=== PATIENT | female | born 1975 | race Caucasian/White ===

== ENCOUNTER → 2020-03-14 15:17 | Outpatient (CLI) | payer OTHER, SELFPAY ==
--- NOTE | ~2020-03-14 | US_ITS ---
EXAMINATION: US transvaginal DATE: 03/14/2020 15:48 INDICATION: Abnormal uterine bleeding TECHNIQUE: Multiple endovaginal sonographic images of the pelvis were obtained. COMPARISON: None. FINDINGS: The uterus measures 9.1 x 4.5 x 4.7 cm. A 1.8 cm hypoechoic area in the anterior aspect of the uterine fundus has the appearance of an intramural fibroid. A 1.8 cm similar appearing area in th e posterior uterine fundus also has the appearance of an intramural fibroid. The endometrial complex measures 13 mm. The ovaries are not visualized however no adnexal abnormality is seen. There is no fr ee fluid in the pelvis. IMPRESSION: 1. No sonographic correlate for the patient's symptoms. Reviewed, dictated and finalized at location A. WASHER OPERATOR
== END ==
PROVIDERS: Visit Provider Nurse Practitioner
DX: N93.8 Other specified abnormal uterine and vaginal bleeding (principal)
CPT/HCPCS: 76830

== ENCOUNTER 2020-03-27 09:09 | Outpatient (CLI) | payer OTHER, SELFPAY ==
--- NOTE | 2020-03-27 09:12 | ECG_ITS ---
Measurements Intervals [place] Rate: 65 P: 36 [place]: 166 QRS: 38 QRSD: 91 T: 24 QT: 374 QTc: 392 Interpretive Statements SINUS RHYTHM MINIMAL Q WAVES- INFERIOR LEADS BASELINE WANDER- II, III BORDERLINE ECG Electronically Signed On 03-27-2020 9:34:07 AGRONOMY SUPERVISOR by Wily Cevallos D.O.
[2020-03-27 10:06] LABS: Anion Gap 7 mmol/L (8-16); Blood Urea Nitrogen 14 mg/dL (7-17); Calcium 9.2 mg/dL (8.4-10.2); Carbon Dioxide 29 mmol/L (22-30); Chloride 105 mmol/L (98-107); Estimated Glomerular Filt Rate > 60; Glucose 138 mg/dL (65-105); Potassium 3.7 mmol/L (3.4-5.0); Sodium 141 mmol/L (137-145)
== END 2020-03-27 09:10 | disposition home or self-care (01) ==
LOC: ANHSURGERY 09:12
PROVIDERS: Anesthesiology; PCP Nurse Practitioner Family; Visit Provider Obstetrics & Gynecology Gynecology
DX: Z01.818 Encounter for other preprocedural examination (principal); I10 Essential (primary) hypertension
CPT/HCPCS: 36415; 80048; 93005

== ENCOUNTER → 2020-03-30 03:12 | Outpatient (CLI) | payer OTHER, SELFPAY ==
[2020-03-30 18:10] LABS: SARS-CoV-2 RNA PCR Negative
== END ==
PROVIDERS: PCP Nurse Practitioner Family; Visit Provider Obstetrics & Gynecology Gynecology
DX: Z01.812 Encounter for preprocedural laboratory examination (principal); Z20.822 Contact with and (suspected) exposure to COVID-19
CPT/HCPCS: C9803; U0003; U0005

== ENCOUNTER 2020-04-02 01:31 | Day surgery (SDC) | payer OTHER, SELFPAY ==
[2020-03-26 10:54] VITALS: BMI 46.0
[2020-04-02 06:13] VITALS: BP 144/92; PULSE 87; RESP 16; TEMP 36.9; O2SAT 100
--- NOTE | 2020-04-02 06:30 | WPDANESEPPF ---
Anes - Initial Pre Proc Eval Procedure: Operation Date: 04/02/20 07:30 Proposed Procedures p Hysteroscopy, Dilation and Curettage - Karen Mazariegos MD Date/Time: 04/02/20 06:30 Surgeon: Karen Mazariegos MD Pre Op Diagnosis: abn uterine bleeding Patient Data Age: 44 Gender: F Height: 5 ft 3 in Weight: 117.95 kg Allergies Allergy/AdvReac Type Severity Reaction Status Date / Time No Known Allergies Allergy Verified 03/27/20 08:00 Home Medications Medication Instructions Recorded Confirmed Type cetirizine 10 mg capsule 10 mg PO DAILY PRN 03/26/20 03/27/20 History cholecalciferol (vitamin D3) 10 10 mcg PO DAILY 03/26/20 03/27/20 History mcg (400 unit) capsule hydrochlorothiazide 12.5 mg PO HS 03/26/20 03/27/20 History losartan 50 mg PO HS 03/26/20 03/27/20 History metformin 500 mg tablet 500 mg PO BID 03/26/20 03/27/20 History omega-3 fatty acids 1,000 mg 1,000 mg PO DAILY 03/26/20 03/27/20 History capsule Patient hx anesthesia problems: none Family hx anesthesia problems: none [facility] Past Medical History Medical History Diabetes Hypertension Surgical History Surgical History History of D&C History of ear surgery Family History Family History Father Diabetes mellitus Heart disease Hypertension Grandparent Diabetes mellitus Heart disease Social History Social History Smoking status: Never smoker Alcohol intake: current Alcohol use details: 2 DRINKS PER MONTH Living arrangements: with family 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 Questions were solicited and answers provided to the satisfaction of the patient/family/POA.
[2020-04-02] MEDS: ACETAMINOPHEN 500 MG TABLET 1000 MG PO (06:52)
[2020-04-02] MEDS: LACTATED RINGERS 1,000 ML 30 ML IV CONT (07:00)
--- NOTE | 2020-04-02 07:19 | WPDHPUPDATE1 ---
History and Physical Update Update Date/Time: 04/02/20 07:19 History and Physical has been reviewed, including an updated exam of the patient. There are NO changes in the patient's condition. Risks, benefits, and alternatives have been discussed and questions answered. Patient agrees to proceed with procedure.
--- NOTE | 2020-04-02 07:20 | P.HP_ITS ---
History of Present Illness History of Present Illness Consent: Risks, benefits, and alternatives have been discussed and questions answered. Patient agrees to proceed with procedure. Chief complaint: abn uterine bleeding Narrative: Beth Krishnan is a 44 year old female with 4 years of amenorrhea secondary to PCOS. Patient was new to us and u/s done showing lining 13mm thickened. Patient labs also diagnosed diabetes. Patient took Provera without cycle induced. Recommend further work up with D&C hysteroscopy. Risks of infection, bleeding, perforation, and possible pathology reviewed. Patient voiced understanding and agrees to proceed. 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 Spiritual care concerns: No Meds Home Medications and Allergies Home Medications Medication Instructions Recorded Confirmed Type cetirizine 10 mg capsule 10 mg PO DAILY PRN 03/26/20 03/27/20 History cholecalciferol (vitamin D3) 10 10 mcg PO DAILY 03/26/20 03/27/20 History mcg (400 unit) capsule hydrochlorothiazide 12.5 mg PO HS 03/26/20 03/27/20 History losartan 50 mg PO HS 03/26/20 03/27/20 History metformin 500 mg tablet 500 mg PO BID 03/26/20 03/27/20 History omega-3 fatty acids 1,000 mg 1,000 mg PO DAILY 03/26/20 03/27/20 History capsule Allergies Allergy/AdvReac Type Severity Reaction Status Date / Time No Known Allergies Allergy Verified 03/27/20 08:00 Exam Const: General: alert and anxious Nutritional Appearance: obese (BMI 45.9) Orientation/consciousness: patient oriented x3 Resp: Effort & Inspection: normal respiratory effort Auscultation: clear to auscultation bilaterally Cardio: Rate: regular rate Rhythm: regular rhythm GI: GI Palp: Yes Soft to palpation, No Tenderness to palpation present (GI) and No Palpable mass present : External Female Exam: normal external appearance Speculum Exam - Vagina: normal appearance of the vagina and normal vaginal discharge Speculum Exam - Cervix: normal appearance of the cervix Bimanual exam- vagina & uterus: uterine size normal and consistency normal Bimanual Exam- Adnexa, other: normal adnexae and No adnexal tenderness Neuro: General: patient oriented x3 Assessment and Plan Assessment and plan (1) Thickened endometrium: Code(s): R93.89 - Abnormal findings on diagnostic imaging of other specified body structures Status: Acute Assessment and Plan: Plan to proceed with hysteroscopy with D&C
[2020-04-02 07:23] LABS: Glucose Point of Care 155 (65-105)
[2020-04-02] MEDS: LIDOCAINE HCL 1% LOCAL INJ 20 ML VIAL 10 ML INFILTRATE (07:46)
[2020-04-02 08:01] VITALS: BP 140/82; PULSE 71; RESP 14; O2SAT 97
--- NOTE | 2020-04-02 08:02 | PM.PROC ---
Procedure Note - Detailed Date of procedure: 04/02/20 Pre-op diagnosis: thickened endometrium amenorrhea with thickened endometrium Post-op diagnosis: same Procedure performed: D&C hysteroscopy Description of procedure: The patient was taken to the operating room and placed under anesthesia in the dorsal lithotomy position. She was prepped and draped in the usual sterile fashion. Rhododendron speculum was placed in the vagina and the cervix was grasped on the anterior lip with a tenaculum. The cervix was injected with 1% lidocaine in each quadrant and the sound was placed and internal os is noted to be stenotic. The small dilators used and the cervix is able to be entered the cervix is serially dilated with Hegar. The diagnostic hysteroscope was placed. A false passage is noted. The true passage is noted to the patient's left of the false passage. The small dilator is used aim for this location and is then serially dilated. The hysteroscope was replaced and the hysteroscope is able to be maneuvered into the true endometrial cavity. The endometrial cavity appears grossly normal. The hysteroscope was removed and the medium sharp curette is used to sharply curette the endometrium. Minimal material is obtained consistent with the thin appearance of the endometrium. All instruments are removed. Sponge, instrument, and needle counts are correct per the OR staff. Anesthesia: MAC and local Surgeon: Karen Mazariegos MD Estimated blood loss (mL): 5 Drains: No Packing: No Pathology: yes (enodmetrial curettings) Complications: No immediate complications Condition: stable Disposition: PACU Findings: cervical os stenotic; false passage created; endometrium normal appearing; uterus sounds to 8 cm
[2020-04-02] MEDS: fentaNYL CITRATE INJ (*CRX) 100 MCG/2 ML VIAL 25 MCG IV PUSH ×2 (08:16→08:44)
[2020-04-02 08:30] VITALS: BP 135/87; PULSE 74; RESP 16
--- NOTE | 2020-04-02 08:53 | SUR.PHASEII ---
0815; PT C/O CRAMPING AT 09/01. FENTANYL GIVEN IV. 0845; PT AWAKE AND ALERT. SITTING IN RECLINER. STATES PAIN IMPROVED AT 07/02. FENTANYL GIVEN IV
[2020-04-02 09:00] VITALS: BP 125/83; PULSE 66; RESP 16
--- NOTE | 2020-04-02 09:43 | SUR.PHASEII ---
0915; PT AWAKE AND ALERT. STATES CRAMPING MUCH BETTER NOW AND TOLERABLE. READY TO GO HOME.
== END 2020-04-02 09:43 | disposition home or self-care (01) ==
PROVIDERS: PCP Nurse Practitioner Family; Visit Provider Obstetrics & Gynecology Gynecology
PROC: 0U5B8ZZ Destruction of Endometrium, Via Natural or Artificial Opening Endoscopic (ICD-10-PCS; CPT 58563; principal; 2020-04-02 07:30)
DX: N85.8 Other specified noninflammatory disorders of uterus (principal); N93.9 Abnormal uterine and vaginal bleeding, unspecified; I10 Essential (primary) hypertension; E11.9 Type 2 diabetes mellitus without complications; Z79.84 Long term (current) use of oral hypoglycemic drugs; E66.01 Morbid (severe) obesity due to excess calories; Z68.42 Body mass index [BMI] 45.0-49.9, adult
CPT/HCPCS: 58558; 36415; 80048; 82948; 88305; 93005; A9270; C9803; J2250; J2704; J3010; J7030; J7120; U0003; U0005

== ENCOUNTER 2020-04-10 12:14 | Outpatient (CLI) | payer OTHER, SELFPAY ==
[2020-04-12 05:19] LABS: FSH 10.9 mIU/mL (***); LH 5.3 mIU/mL (***)
== END 2020-04-10 12:15 | disposition home or self-care (01) ==
PROVIDERS: PCP Nurse Practitioner Family; Visit Provider Nurse Practitioner
DX: N91.2 Amenorrhea, unspecified (principal)
CPT/HCPCS: 36415; 83001; 83002

== ENCOUNTER 2023-06-19 13:37 | Outpatient (CLI) | payer OTHER, MEDICAID, SELFPAY ==
[2023-06-19 15:00] LABS: Alanine Aminotransferase 17 U/L (6-35); Albumin Level 4.6 g/dL (3.5-5.1); Alkaline Phosphatase 65 U/L (38-126); Anion Gap 7 mmol/L (4-12); Aspartate Amino Transferase 20 U/L (14-36); Bilirubin,Total 0.6 mg/dL (0.2-1.3); Blood Urea Nitrogen 15 mg/dL (7-17); Calcium 9.6 mg/dL (8.4-10.2); Carbon Dioxide 28 mmol/L (22-30); Chloride 106 mmol/L (98-107); Estimated Glomerular Filt Rate > 60; Glucose 110 mg/dL (65-110); Potassium 3.7 mmol/L (3.4-5.0); Sodium 141 mmol/L (137-145)
[2023-06-19 15:57] LABS: Free T4 Free Thyroxine 1.31 ng/mL (0.78-2.19); Vitamin D 25 Hydroxy 55.1 ng/mL
[2023-06-21 06:43] LABS: DHEA-Sulfate 47 mcg/dL (15-205)
[2023-06-22 13:12] LABS: Thyroid Peroxidase Antibodies <1 IU/mL (<9)
[2023-06-23 09:48] LABS: Testosterone Free 0.9 pg/mL (0.2-5.0); Testosterone Total 5 ng/dL (2-45)
== END 2023-06-19 13:38 | disposition home or self-care (01) ==
LOC: ANHLAB 13:39
PROVIDERS: PCP Nurse Practitioner Family; Visit Provider Internal Medicine
DX: E28.2 Polycystic ovarian syndrome (principal); E11.9 Type 2 diabetes mellitus without complications; Z68.42 Body mass index [BMI] 45.0-49.9, adult
CPT/HCPCS: 36415; 80053; 82306; 82627; 83498; 84402; 84403; 84439; 84443; 86376

== ENCOUNTER 2023-06-22 16:24 | Outpatient (CLI) | payer OTHER, MEDICAID, SELFPAY ==
--- NOTE | ~2023-06-22 | US_ITS ---
EXAMINATION: US thyroid DATE: 06/22/2023 17:26 INDICATION: Goiter. TECHNIQUE: Multiple ultrasound images of the thyroid were obtained. COMPARISON: None. FINDINGS: The right thyroid lobe measures 4.1 x 1.8 x 1.7 cm. The left thyroid lobe measures 4.5 x 1.4 x 1.7 c m. The thyroid demonstrates heterogeneous echogenicity. Vascularity is normal. In the thyroid isthmu s, there is a 3.4 cm solid, isoechoic, wider than tall nodule with ill-defined margin without echogen ic foci (TI-RADS TR3). In the left thyroid lobe, there is an 11 mm solid, hypoechoic, wider than tall nodule with ill-defined margin without echogenic foci (TR4). In the right thyroid lobe, there is a 9 mm solid, hypoechoic, wider than tall nodule with irregular margin without echogenic foci (TR4). IMPRESSION: 1. Multinodular goiter. Ultrasound-guided fine-needle aspiration of the 3.4 cm nodule in thyroid isth mus is recommended. Reviewed, dictated and finalized at location A. IMPRESSION: 1. Multinodular goiter. Ultrasound-guided fine-needle aspiration of the 3.4 cm nodule in thyroid isthmus is recommended.
== END 2023-06-22 16:25 | disposition home or self-care (01) ==
LOC: ANHIMG 16:28
PROVIDERS: PCP Nurse Practitioner Family; Visit Provider Internal Medicine
DX: E11.9 Type 2 diabetes mellitus without complications (principal); E04.2 Nontoxic multinodular goiter
CPT/HCPCS: 76536

== ENCOUNTER 2023-07-06 08:02 | Outpatient (CLI) | payer OTHER, MEDICAID, SELFPAY ==
[2023-07-06 09:04] LABS: Cholesterol 150 mg/dL (0-200); HDL Direct 42 mg/dL; Triglycerides 163 mg/dL (<150)
[2023-07-06 09:17] LABS: LDL Cholesterol Direct 98 mg/dL
[2023-07-06 09:49] LABS: Vitamin D 25 Hydroxy 57.8 ng/mL
== END 2023-07-06 08:03 | disposition home or self-care (01) ==
PROVIDERS: PCP Nurse Practitioner Family; Visit Provider Internal Medicine
DX: E11.9 Type 2 diabetes mellitus without complications (principal); E28.2 Polycystic ovarian syndrome; E28.39 Other primary ovarian failure; R93.89 Abnormal findings on diagnostic imaging of other specified body structures; E78.2 Mixed hyperlipidemia; E55.9 Vitamin D deficiency, unspecified
CPT/HCPCS: 36415; 80061; 82306; 82530

== ENCOUNTER 2023-07-06 08:46 | Outpatient (CLI) | payer OTHER, MEDICAID, SELFPAY ==
[2023-07-13 14:12] VITALS: BMI 42.7
--- NOTE | 2023-07-13 14:12 | WPDHOMESLEEP ---
Sleep Study - Home Unattended Date of Study: 07/06/23 Ordering Provider: JORGE LUIS Forbes Interpreting Provider: Katlyn Carty, DO Home Sleep Study Type: Watch PAT Height: 1.63 m Weight: 112.945 kg Body Mass Index: 42.7 Neck Circumference (inches): 16 [place]: 2 Reason for Sleep Study Snoring Sleep History The patient is a 47-year-old female with hypertension, type 2 diabetes, PCOS and morbid obesity that had a sleep study ordered by the pulmonary group for evaluation of sleep apnea. The patient denies awakening from sleep short of breath. She denies awakening at night with heartburn, belching or cough. She frequently snores and is frequently loud enough that others complain. She rarely has trouble sleeping when she has a cold. She denies waking up gasping for air throughout the night. She denies having breathing problems at night observed by herself or others. She occasionally sweats excessively at night. She denies having heart palpitations or irregular heartbeats during the night. She denies falling asleep during the day and while driving. She denies sleep paralysis and cataplexy. She rarely has trouble at school or work due to sleepiness. She rarely experiences vivid dreamlike scenes upon awakening or falling asleep. She denies feeling afraid of going to sleep. She rarely has nightmares. She rarely remembers her dreams. She denies having thoughts racing through her mind. She rarely feels sad or depressed. She rarely has anxiety. She denies having muscular tension. She denies noticing parts of her body jerk. She denies kicking during the night. She denies having crawling and aching feelings in her legs and denies having leg pain during the night. She denies grinding her teeth during sleep and denies awakening with morning jaw pain. She denies being bothered by pain during the day and denies being awakened by pain during the night. She denies waking up feeling stiff in the morning. She denies waking up with sore or achy muscles. She denies waking up with pain in the neck, spine and other joints. She goes to bed at 9:00 p.m. on weekdays and between 10-11 p.m. on the weekends. It takes her 5-15 minutes to fall asleep. She wakes up 1-2 times throughout the night to urinate and is able to fall back asleep within 15-30 minutes. She wakes up at 5:15 a.m. on weekdays and between 5-9 a.m. on the weekends. She typically gets 7 hours of sleep per night. She will stay in bed for 5 minutes after waking up in the morning. She currently lives with her spouse and 2 children. She denies consuming any caffeinated beverages within 2 hours of bedtime. She denies engaging in physical exercise before bedtime. She will watch television before falling asleep. She denies taking naps in afternoon or the evening. She consumes 1 caffeinated beverage per week. She denies tobacco, alcohol and recreational drug use. [facility] Past Medical History Medical History Diabetes Hypertension PCOS (polycystic ovarian syndrome) Surgical History Surgical History History of D&C History of ear surgery Family History Family History Father Diabetes mellitus Heart disease Hypertension Grandparent Diabetes mellitus Heart disease Social History Social History Smoking status: Never smoker Alcohol intake: current Alcohol use details: 2 DRINKS PER MONTH Substance use: never Do You Feel Safe in your Home?: Yes Lack of Transportation: No Lack of Food: Never True Current Housing: I Have Housing Concerned About Future Housing: No Difficulty Paying Gas/Electric Bills: No Difficulty Paying for Meds: No Currently Unemployed: No Education: Associate Degree Difficulty w/ Childcare or Fami
== END 2023-07-07 09:43 | disposition home or self-care (01) ==
LOC: ANHCSM 08:46
PROVIDERS: PCP Nurse Practitioner Family; Visit Provider Physician Assistant
DX: G47.33 Obstructive sleep apnea (adult) (pediatric) (principal); G47.10 Hypersomnia, unspecified
CPT/HCPCS: 36415; 80061; 82306; 82530; 95800

== ENCOUNTER 2023-09-01 12:25 | Outpatient (CLI) | payer OTHER, MEDICAID, SELFPAY ==
--- NOTE | ~2023-09-01 | US_ITS ---
EXAMINATION: US FNA w image guidance, US FNA additional DATE: 09/01/2023 13:52 (accession [id number]), 09/01/2023 16:08 (accession [id number]) INDICATION: Thyroid nodules TECHNIQUE: A time-out was performed to verify the patient's name, date of , and procedure to be performed . The procedure and its benefits and risks were discussed with the patient. Risks specifically discus sed included bleeding and infection. The patient understood the risks and agreed to proceed. The neck was prepped and draped in the usual sterile manner. Attention was first turned to the larger nodule at the isthmus. 4 mL 1% lidocaine was used for local anesthesia. 6 passes were made with a 25G needl e into the lesion. Appropriate needle location was documented with continuous sonographic guidance. Attention was then turned to the smaller left thyroid nodule. An additional 4 mm 1% lidocaine was use d for local anesthesia. 6 additional passes were made with a 20 5G needle into the lesion. Appropriat e needle location was documented with continuous sonographic guidance. Sterile bandages were applied to both biopsy sites. There were no immediate complications. FINDINGS: Grayscale ultrasound images demonstrate biopsy needles advanced into a 3.4 cm TI RADS 3 nodule at the thyroid isthmus. Subsequent images demonstrate biopsy needles advanced into a 1.2 cm TI RADS 4 nodul e at the mid to inferior left thyroid. IMPRESSION: 1. Successful ultrasound-guided fine needle aspiration of a 3.4 cm TI RADS 3 nodule at the thyroid i sthmus. 2. Successful fine-needle aspiration of a 1.2 cm TI RADS 4 nodule at the left thyroid lobe. Reviewed, dictated and finalized at location A. IMPRESSION: 1. Successful ultrasound-guided fine needle aspiration of a 3.4 cm TI RADS 3 n odule at the thyroid isthmus. 2. Successful fine-needle aspiration of a 1.2 cm TI RADS 4 nodule at the left t hyroid lobe.
== END 2023-09-01 12:26 | disposition home or self-care (01) ==
LOC: ANHIMG 12:28
PROVIDERS: PCP Nurse Practitioner Family; Visit Provider Internal Medicine
DX: E04.2 Nontoxic multinodular goiter (principal); E28.2 Polycystic ovarian syndrome; E11.9 Type 2 diabetes mellitus without complications; E28.39 Other primary ovarian failure; G47.10 Hypersomnia, unspecified
CPT/HCPCS: 10005; 10006; 88172; 88173; 88305

== ENCOUNTER 2024-08-30 08:30 | Outpatient (CLI) | payer OTHER, MEDICAID, SELFPAY ==
--- NOTE | ~2024-08-30 | US_ITS ---
EXAMINATION: US thyroid DATE: 08/30/2024 09:38 INDICATION: Multinodular goiter TECHNIQUE: Multiple ultrasound images of the thyroid were obtained. COMPARISON: 06/22/2023. Reference is also made to prior thyroid biopsy images of the isthmus and the left thyroid nodule on , both nodules yielding benign results. FINDINGS: Innumerable nodules are detected bilaterally. Only the largest most suspicious nodules are described. The right thyroid lobe measures 3.6 x 1.1 x 1.7 cm. Within the right lobe of the thyroid gland is a 9.1 x 5.4 x 9.6 mm nodule: Composition -mixed cystic and solid (1) Echogenicity -hyperechoic and isoechoic (1) Shape - wider than tall Margin - smooth Echogenic foci - none. = TR2 not suspicious. The left thyroid lobe measures 4.8 x 1.4 x 1.8 cm. Within the left lobe of the thyroid gland is a 11.4 x 9.4 x 12 mm nodule: Composition -spongiform Echogenicity -hyperechoic and isoechoic (1) Shape - wider than tall Margin - smooth Echogenic foci - none. = TR 1, benign. This nodule was biopsied on 09/01/2023, yielding benign results. No significant growth is identified. The isthmus measures 2.1cm in anterior to posterior dimension. Within the isthmus of the thyroid gland is a 32 x 27 x 32 mm nodule: Composition -spongiform Echogenicity -hyperechoic and isoechoic (1) Shape - wider than tall Margin - smooth Echogenic foci -punctate echogenic foci (3) = = TR 4, moderately suspicious Greater than or equal to 1 cm, follow-up. Greater than or equal to 1.5 cm, FNA. This nodule was biopsied on 08/31/2021, yielding benign results, and has not grown significantly since that time. There is otherwise normal echotexture and echogenicity throughout the remainder of the thyroid gland. Normal vascular flow is present. IMPRESSION: TR2 nodule in the right lobe of the thyroid gland measuring 9.6 mm in greatest dimension. This nodule is not sonographically suspicious and no FNA or follow-up is recommended TR 4 nodule within the isthmus, previously biopsied yielding benign results. TR 1 nodule within the left lobe of the thyroid gland While follow-up is not recommended (as per TIRADs criteria) it may be performed, at the discretion of the referring clinician. Reviewed, dictated and finalized at location A. IMPRESSION: TR2 nodule in the right lobe of the thyroid gland measuring 9.6 mm in greatest dimension. This nodule is not sonographically suspicious and no FNA or follow-up is recomm ended TR 4 nodule within the isthmus, previously biopsied yielding benign results. TR 1 nodule within the left lobe of the thyroid gland While follow-up is not recommended (as per TIRADs criteria) it may be performed , at the discretion of the referring clinician.
--- OUTSIDE RECORDS SUMMARY | 2024-08-30 08:35 | XMS_ITS | Clinical Summary ---
Author Organization [facility] Address [address] [place] [address] Care Team Providers Care Interpreter For The Deaf Name Role Phone Sarah Hopper Primary Care Provider [phone] Source Comments [facility],non-owned Affiliates and Associated Physician Practices is amultiple site organization consisting of ambulatory clinics and hospital sitesin [place], [place], [place] and [place]. This disclosure is being madepursuant to the Care Everywhere program and may not contain all information available regarding this patient. Last updated 17.[facility] Allergies No known active allergies Medications * Be aware that medications may not be up to date on this document. Alwaysverify current medications with the patient. hydroCHLOROthiaz stevo (HYDRODIURIL) 12.5 MG Take 12.5 mg by mouth once daily 1 12/07/2017 Active loratadine (CLARITIN) 10 MG tablet Take 10 mg by mouth once daily 1 02/08/2018 Active losartan (COZAAR) 50 MG tablet Take 50 mg by mouth Active vitamin D3-cholecalcifer ol (CHOLECACIFEROL) 1000 UNITS tablet Active Active Problems Problem Noted Date Diagnosed Date Hypertensive disorder 03/01/2018 Mixed anxiety and depressive disorder 03/01/2018 Morbid obesity 03/01/2018 Vitamin D deficiency 02/06/2016 Polycystic ovaries 02/24/2008 Unilateral hearing loss 02/23/2007 Social History Tobacco Use Types Packs/Day Years Used Date Smoking Tobacco: Never Smokeless Tobacco: Never Alcohol Use Standard Drinks/Week Comments No 0 (1 standard drink = 0.6 oz pur e alcohol) Comments Unknown Sex and Gender Information Value Date Recorded Sex Assigned at Not on file Legal Sex Female 8:43 AM CDT Gender Identity Not on file Sexual Orientation Not on file Last Filed Vital Signs Vital Sign Reading Time Taken Comments Blood Pressure 130/88 03/01/2018 9:36 AM EMPLOYEE RELATIONS REPRESENTATIVE Pulse - - Temperature - - Respiratory Rate - - Oxygen Saturation - - Inhaled Oxygen Concentration - - Weight 116.6 kg (257 lb) 03/01/2018 9:36 AM EMPLOYEE RELATIONS REPRESENTATIVE Height - - Body Mass Index - - Plan of Treatment Health Maintenance Due Date Last Done Comments COLOGUARD (AGES 45-75) - COL ON CA SCREENING 1976 COLON MONITORING 1976 COLONOSCOPY - COLON CA SCREENING 1976 CT COLONOGRAPHY - COLON CA SCREENING 1976 Colorectal Cancer Screening 1976 FIT - COLON CA SCREENING 1976 FLEX SIG - COLON CA SCREENING 1976 LIPID TESTING 1976 MAMMOGRAM 1976 HIV SCREENING 12/02/1991 HEPATITIS C SCREENING 11/27/1994 DTAP/TDAP/TD VACCINES (1 - Tdap) 12/02/1995 HEPATITIS B VACCINE (1 of 3 - 19+ 3-dose series) 12/02/1995 PAP with HPV 03/01/2023 03/01/2018 COVID-19 VACCINE ( - 2023-2 5 season) 2023 DEPRESSION SCREENING 02/24/2024 INFLUENZA VACCINE (#1) 2024 ZOSTER VACCINE (1 of 2) 2026 HIB VACCINE Aged Out No longer eligi ble based on patient's age to complete this topic HPV VACCINE Aged Out No longer eligi ble based on patient's age to complete this topic MENINGOCOCCAL (Group B) VACC INE SHARED DECISION-MAKING Aged Out No longer eligibl e based on patient's age to complete this topic MENINGOCOCCAL GROUPS A/C/Y/W VACCINE Aged Out No longer eligible b ased on patient's age to complete this topic PNEUMOCOCCAL VACCINE Aged Out No long er eligible based on patient's age to complete this topic Procedures Procedure Name Priority Date/Time Associated Diagnosis Comments HPV DETECTION HIGH RISK KARISHMA Routine 03/01/2018 10:59 AM EMPLOYEE RELATIONS REPRESENTATIVE Well woman exam with routine gynecological exam from Last 3 Months or Most Recently Relevant to Health Maintenance Results * HPV DETECTION HIGH RISK KARISHMA (03/01/2018 10:59 AM EMPLOYEE RELATIONS REPRESENTATIVE) High Risk Human Papilloma Result Not Detected Not Detected 03/04/2018 3:30 PM EMPLOYEE RELATIONS REPRESENTATIVE [facility] High Risk Human Papilloma Interp 03/04/2018 3:30 PM EMPLOYEE RELATIONS REPRESENTATIVE [facility] Comment:High Risk Human Adam lloma Virus was Not Detected. Pathology/Cytolo gy MISCELLANEOUS SAMPLES / Unknown 03/01/2018 10:59 AM EMPLOYEE RELATIONS REPRESENTATIVE 03/02/2018 10:59 AM EMPLOYEE RELATIONS REPRESENTATIVE Narrative [facility] - 03/04/2018 3:30 PM EMPLOYEE RELATIONS REPRESENTATIVE Nucleic acid isolated from the specimen was analyzed with a nucleic acid amplification test (FDA approved Gen-Probe HPV Assay) to detect high risk human papilloma virus (Types: 16, 18, 31, 33, 35, 39, 45, 51, 52, 56, 58, 59, 66, and 68). The reference range is Not Detected. Comment: These test results should not be used as the sole basis for clinical assessment and treatment of patients. These results should always be correlated with other available data (cytology, histology, and clinical information). Sonya Oden MD LAB - MICROBIOLOGY ORDERABLES nal Result Performing Organization Address City/State/[facility] Co de Phone Number [facility] [address] [phone] from Last 3 Months or Most Recently Relevant to Health Maintenance [place] [place] [address] CARE [facility] MEDICAID - [place] Care Teams Interpreter For The Deaf Relationship Specialty Start Date End Date Sarah Hopper PA [address] [place] [address] PCP - General 11/11/17
--- OUTSIDE RECORDS SUMMARY | 2024-08-30 08:35 | XMS_ITS | Clinical Summary ---
Author Organization [facility] Address [address] [place] [address] Phone Care Team Providers Care Tow Truck Operator Name Role Phone Radha Ashley APRN BOATBUILDER APPRENTICE WOOD Primary Care Provider [phone] Allergies No known active allergies Medications busPIRone (BUSPAR) 10 MG Tablet Take 10 mg by mouth 3 times daily. Active fluticasone (FLONASE) 50 MCG/ACT Suspension 1-2 Sprays by Nasal route daily. Use in each nostril as directed. Active losartan (COZAAR) 50 MG Tablet Take 50 mg by mouth daily. Active albuterol (PROAIR HFA) 108 (90 Base) MCG/ACT Aerosol Solution take 2 Puffs by inhalation every 4 hours as needed for Wheezing. Active Cholecalciferol (VITAMIN D3) 1000 UNIT Tablet Take by mouth. Activ e Family History Medical History Relation Name Comments Diabetes Father Heart Disease Father Hypertension Father Diabetes Maternal Grandmother Heart Disease Maternal Grandmother Hypertension Maternal Grandmother Hypertension Mother Diabetes Paternal Grandfather Heart Disease Paternal Grandfather Relation Name Status Comments Father Maternal Grandmother Mother Paternal Grandfather Social History Tobacco Use Types Packs/Day Years Used Date Smoking Tobacco: Never Comments Unknown Sex and Gender Information Value Date Recorded Sex Assigned at Not on file Legal Sex Female 9:50 PM CDT Gender Identity Not on file Sexual Orientation Not on file Plan of Treatment Health Maintenance Due Date Last Done Comments Hepatitis C Virus (HCV) Screening 1976 Hepatitis B Immunization (1 of 3 - 19+ 3-dose series) 12/02/1995 HPV/Cotest 2006 Cervical Cancer Screening (CCS) 03/01/2021 Pap Smear 03/01/2021 03/01/2018 Cologuard 2021 Colonoscopy 2021 Colorectal Cancer Screening 2021 Immunochemical Fecal Occult Blood 2021 SARS-COV-2 Immunization ( season) 2023 02/26/2021, 05/29/2020, 05/06/2020 Influenza Immunization (#1) 2024 Respiratory Syncytial Virus (RSV) Immunization (Adult) (1 - 1-dose 75+ series) 12/02/2051 DTaP/Tdap/Td Immunization Discontinued 2013, 02/23/2006 TdaP Immunization Completed 11/01/2013, 02/23/2006 Human Papillomavirus (HPV) Immunization Aged Out No longer eligible based on patient's age to complete this topic Meningococcal Immunization (ACWY) Aged Out No longer eligible based on patient's age to complete this topic Pneumococcal Immunization Combined Aged Out No longer eligible based on patient's age to complete this topic Rotavirus Immunization Aged Out No lo nger eligible based on patient's age to complete this topic Care Teams Tow Truck Operator Relationship Specialty Start Date End Date Radha Ashley APRN, BOATBUILDER APPRENTICE WOOD [address] [place] [address] [place] [id number] PCP - General Family Medicine 02/28/20
--- OUTSIDE RECORDS SUMMARY | 2024-08-30 08:35 | XMS_ITS | Encounter Summary ---
Author Organization [facility] Healthcare Address [address] [place] [address] Care Team Providers Care Cobol Application Developer Name Role Phone Radha Ashley NP Primary Care Provider [phone] Encounter Details Date Type Department Care Team ([facility] Contact Info) Description 07/19/2024 Results Follow-Up [facility] Medical Group Women's Health Care at [address] [address] Ruby Chahal NP [address] [place] [address] Screening Mammogram Bilateral W Evangelista Social History Tobacco Use Types Packs/Day Years Used Date Smoking Tobacco: Never Humiliation, Afraid, Rape, and Kick questionnair e Answer Date Recorded Within the last year, have y ou been afraid of your partner or ex-partner? No 03/10/2022 Within the last year, have y ou been humiliated or emotionally abused in other ways by your partner or ex-partner? No Within the last year, have y ou been kicked, hit, slapped, or otherwise physically hurt by your partner or ex-partner? No 03/10/2022 Within the last year, have y ou been raped or forced to have any kind of sexual activity by your partner or ex-partner? No 03/10/2022 PHQ-2 Answer Date Recorded PHQ-2 Total Score (If total score is 3 or more points, staff should administer the PHQ-9) 0 06/21/2024 Hunger Vital Sign Answer Date Recorded Within the past 12 months, y ou worried that your food would run out before you got the money to buy more. Never true 10/29/19 Within the past 12 months, t he food you bought just didn't last and you didn't have money to get more. 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
--- OUTSIDE RECORDS SUMMARY | 2024-08-30 08:35 | XMS_ITS | Clinical Summary ---
Author Organization [facility] Medical Office Building B Address [address] [place] [address] Care Team Providers Care Chain Maker Machine Name Role Phone Radha Ashley NP Primary Care Provider Allergies No known active allergies Medications losartan (COZAAR) 50 mg tablet losartan 50 mg tablet TAKE 1 TABLET BY MOUTH EVERY DAY Active hydroCHLOROthi azide (HYDRODIURIL) 12.5 mg tablet 3 Active Trulicity 1.5 mg/0.5 mL pen injector INJECT 1.5MG SUBCUTANEOUSLY ONE TIME PER WEEK 3 Active metFORMIN (GLUCOPHAGE) 500 mg tablet Take 2 tablets (1,000 mg total) by mouth 2 (two) times a day 2 Active Mounjaro 12.5 mg/0.5 mL pen injector injection 5 Active ezetimibe (ZETIA) 10 mg tablet Take 1 tablet (10 mg total) by mouth daily 5 Active Aurovela Fe 1-20, 28, 1 mg-20 mcg (21)/75 mg (7) per tablet Take 1 tablet by mouth daily 84 tablet 3 5 Active nystatin cream Apply topically 2 (two) times a day 30 g 1 5 026 Active Active Problems Problem Noted Date Diagnosed Date Secondary amenorrhea 09/26/2022 Overview (10/28/2022): - Prolactin 6.3, TSH 1.16, FSH 9.1, estradiol 11.9, AMH <0.06, hgb A1c 5.6%, testosterone <7. - Pelvic US 10/28/2022 with two small fibroids (<1.5 cm), otherwise wnl. 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 - Offered pituitary MRI to rule out sellar mass but counseled patient that suspicion is low given absence of headaches, visual symptoms, or neurologic symptoms. Patient plans to defer MRI at this time. - Rx for COCs sent to the patient's pharmacy today for estrogen supplementation to promote bone and cardiovascular health. Assessment & Plan (06/21/2024 2:43 PM CDT): Doing well on OCP. Continue to follow with endocrinology. Call with any concerns. 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 Discussed importance of preventing uterine hyperplasia. Encounters Date Type Department Care Team Description 07/19/2024 Results Follow-Up [facility] Medical Group Women's Health Care at [address] [address] Ruby Chahal NP Screening Mammogram Bilateral W Evangelista 07/16/2024 10:53 AM CDT - 07/16/2024 11:59 PM CDT Hospital Encounter [address] [address] Screening mammogram, encounter for Discharge Disposition: Discharge to home or self care 07/15/[address] [address] Roseline Ramirez 06/23/2024 Results Follow-Up [facility] [address] [place] [address] [address] [place] [address] Ruby Chahal NP Pap, reflex HPV 06/21/2024 2:00 PM CDT Office Visit [facility] [address] [place] [address] [address] [place] [address] Ruby Chahal NP Well woman exam (Primary Dx); Secondary amenorrhea from Last 3 Months Surgical History Surgery Date Site/Laterality Comments DILATION AND CURETTAGE OF UTERUS 02/24/2020 - 02/22/2021 Medical History Medical History Date Comments High blood pressure Diabetic acidosis, type II (HCC) Family History Medical History Relation Name Comments Diabetes Father Hypertension Father Cervical cancer Maternal Grandmother Diabetes Maternal Grandmother Diabetes Paternal Grandfather Breast cancer Neg Hx Ovarian cancer Neg Hx Thyroid cancer Neg Hx Relation Name Status Comments Father Maternal Grandmother Paternal Grandfather Social History Tobacco Use Types Packs/Day Years Used Date Smoking Tobacco: Never Tobacco Cessation:Counseling Given: Not Answered Humiliation, Afraid, Rape, and Kick questionnair e [...] money to buy more. Never true 10/29/19 23 Within the past 12 months, t he food you bought just didn't last and you didn't have money to get more. Never true 10/28/2022 Comments No Sex and Gender Information Value Date Recorded Sex Assigned at Not on file Legal Sex Female 4:19 PM SOFA BACK UPHOLSTERER Gender Identity Female 05/30/2024 9:16 AM CDT Sexual Orientation Not on file Obstetrics History Para Term AB IAB SAB Ectopic Multiple Livin g Live Births 0 0 0 0 0 0 0 0 0 0 0 Last Filed Vital Signs Vital Sign Reading Time Taken Comments Blood Pressure 130/70 06/21/2024 1:45 PM CDT Pulse 70 10/28/2022 2:37 PM CDT Temperature - - Respiratory Rate - - Oxygen Saturation 100% 10/28/2022 2:37 PM CDT Inhaled Oxygen Concentration - - Weight 99.8 kg (220 lb) 07/16/2024 10:58 AM CDT Height 160 cm (5' 3) 07/16/2024 10:58 AM CDT Body Mass Index 38.97 07/16/2024 10:58 AM CDT Plan of Treatment Health Maintenance Due Date Last Done Comments Colon Cancer Screening-Colonoscopy 1976 Hepatitis C Screening 1975 Hepatitis B Screening 1994 Covid-19 Vaccine (2023-2 5 season) 2023 02/26/2021, 05/29/2020, 05/06/2020 DTaP/Tdap/Td Vaccine (3 - Td or Tdap) 11/02/2023 11/01/2013, 02/23/2006 Influenza Vaccine (#1) 2024 Cervical Cancer Screening 06/21/20252024, 03/09/2023, 03/06/2022 Depression Screening 06/21/2025 06/21/2024, 03/09/2023, 03/06/2022 Regular Well Visit/Exam 18-64 06/21/2025, 03/09/2023, 03/06/2022 Breast Cancer Screening-Mammogram 07/16/2025 07/16/2024, 05/13/2023, 05/09/2022 Pneumococcal vaccine <65 Aged Out No longer eligible based on patient's age to complete this topic Procedures Procedure Name Priority Date/Time Associated Diagnosis Comments SCREENING MAMMOGRAM BILATERAL W EVANGELISTA Schedule Routine, Read Routine (OP Routine) 07/16/2024 11:07 AM CDT Screening mammogram, encounter for PAP, REFLEX HPV Routine 06/21/2024 2:33 PM CDT Well woman exam from Last 3 Months Results * Screening Mammogram Bilateral W Evangelista (07/16/2024 11:07 AM CDT) Anatomical Region Laterality Modality Breast Bilateral Mammography Impressions 07/19/2024 8:04 AM CDT Bilateral No evidence of malignancy in either breast. OVERALL BI-RADS FINAL ASSESSMENT: 1 - Negative RECOMMENDATION: Recommend bilateral annual screening mammography. Narrative 07/19/2024 8:04 AM CDT EXAMINATION: Screening Mammogram Bilateral W Evangelista: 07/16/2024 COMPARISON: Relevant prior studies available at the time of interpretation were reviewed. TECHNIQUE: Mammography was performed with 2D and digital breast tomosynthesis (DBT) images. CAD was utilized. BREAST PARENCHYMAL COMPOSITION: The breasts are almost entirely fatty. FINDINGS: Bilateral There is no suspicious mass, calcification, or architectural distortion in either breast. us Self Screening Mammogram IMG MAMMO PROCEDURES Fi nal Result * Pap, reflex HPV (06/21/2024 2:33 PM CDT) Clinical indication Comment [facility] - 01 Comment:NEGATIVE FOR INTRAEP ITHELIAL LESION OR MALIGNANCY. Specimen adequacy: Comment [facility] - 01 Comment: Satisfactory for evaluation. Endocervical and/or squamous metaplastic cells (endocervical component) are present. Clinician provided ICD10 Comment [facility] - 01 Comment:Z01.419 Performed by Comment [facility] - 01 Comment:Keri Fuller, Cytolog ist (ASCP) . . [facility] - 01 Note: Comment [facility] - 01 Comment: The Pap smear is a screening test designed to aid in the detection of premalignant and malignant conditions of the uterine cervix. It is not a diagnostic procedure and should not be used as the sole means of detecting cervical cancer. Both false-positive and false-negative reports do occur. Test methodology Comment [facility] - 01 Comment: This liquid based ThinPrep(R) pap test was screened with the use of an image guided system. . Comment [facility] - 01 Comment: The HPV DNA reflex criteria were not met with this specimen result therefore, no HPV testing was performed. Thin prep 06/21/2024 2:33 PM CDT 06/21/2024 Narrative [facility] - 06/23/2024 11:11 AM CDT Performed at: [address] [place] [id number] Glass Laminating Operator: Keyonna Nation MD, Phone: [phone] Specimen Comment: [id number] Specimen Comment: No. of containers..01 ThinPrep Vial Ruby Chahal NP LAB CYTOLOGY ORDERABLES Fin al Result Performing Organization Address City/State/[facility] [place] Co de Phone Number [facility] - 01 from Last [address] Insurance [facility] CHO[facility] HMO/PPO Address: [address] [address] [place] [address] [facility] CHOICE [facility] HMO/PPO Address: [address] [address] [place] [address] IDPA IDPA [facility] CHOICE [facility] HMO/PPO Address: [address] [address] [place] [address] [facility] CHOICE [facility] HMO/PPO Address: [address] [address] [place] [address] IDPA Care Teams Chain Maker Machine Relationship Specialty Start Date End Date Radha Ashley NP [address] [place] [address] PCP - General Nurse Practitioner 03/14/22
--- OUTSIDE RECORDS SUMMARY | 2024-08-30 08:35 | XMS_ITS | Data Portability ---
Author Organization [facility] Address [address] [facility] [place] [address] Care Team Providers Care Protection Chief [employer] Name Role Phone RADHA BELLA Primary Care Provider Unavailabl e Assessment No assessment recorded. Plan of Treatment Reminders Order Date Submit Date Provider Last Modified By Organization Details Last Modified Time Details Appointments ANY 15 2024 03:15P M Radha Bella, [employer], [employer] Not available Not available Not available Lab HbA1c (hemoglob in A1c), blood 2024 025 In-Office Order, Internal Use Only DO Not Attach Compendium DO Not Attach Compendium, Do Not Delete/merge, [id number] 04/25/2024 18:14:56 lipid panel, serum 2023 024 [facility], [address] [facility] [place], [facility], [place], [address], 07/06/2023 15:43:46 vitamin D, 25-hydrox y, total, serum 2023 024 [facility], [address] [facility] [place], [facility], [place], [address], 06/25/2023 11:03:26 noninvasi ve colorecta l cancer DNA + occult blood screening , QL, stool 2023 024 [facility] (Cologuard Orders Only), [address], [address], [place], [address], 05/09/2023 12:59:52 HbA1c (hemoglob in A1c), blood 2022 023 In-Office Order, Internal Use Only DO Not Attach Compendium DO Not Attach Compendium, Do Not Delete/merge, [id number] 01/22/2023 11:16:34 Referral None recorded. Procedures None recorded. Surgeries None recorded. Imaging None recorded. Medication Orders amoxicill in 875 mg-potass ium clavulana te 125 mg tablet 2024 025 [facility] [address] In [facility], [address] [place] [address], [address], 05/26/2024 16:25:26 hydrochlo rothiazid e 12.5 mg tablet 2024 025 [facility] [address] In [facility], [address] [place] [address], [id number], 04/25/2024 18:15:00 losartan 50 mg tablet 2024 025 [facility] [address] In [facility], [address] [place] [address], [address], 04/25/2024 18:14:59 cholecalc iferol (vitamin D3) 25 mcg (1,000 unit) tablet 2024 025 [facility] [address] In [facility], [address] [place] [address], [address], 04/25/2024 18:14:59 hydrochlo rothiazid e 12.5 mg tablet 2023 024 [facility]/Pharmacy #[id number], [address] [place], [address], 10/22/2023 09:07:42 losartan 50 mg tablet 2023 024 [facility] [address] In [facility], [address] [place] [address], [address], 10/22/2023 09:07:43 Vitamin D3 25 mcg (1,000 unit) tablet 2023 024 [facility] [address], [address], 10/22/2023 09:07:43 hydrochlo rothiazid e 12.5 mg tablet 2023 024 [facility]/Pharmacy #[id number], [address] [place], [address], 04/23/2023 09:28:13 losartan 50 mg tablet 2023 024 [facility] [address], [address], 04/23/2023 09:28:14 Trulicity 4.5 mg/0.5 mL subcutane ous pen injector 2023 024 [facility] [address], [address], 10/22/2023 08:50:48 Vitamin D3 25 mcg (1,000 unit) tablet 2023 024 [facility] [address], [address], 04/23/2023 09:28:16 Patient TargetsNo targets recorded. Patient Instructions Encounter Date Encounter Id Patient Instructions Last Modified By Organization Details Last Modified Time 01/22/2023 [id number] A healthy lifestyle: care instructions Not available 01/22/2023 11:41:53 how to give a glucagon shot: care instructions Not available 01/22/2023 11:16:34 learning about type 2 diabetes Not available 01/22/2023 11:16:34 type 2 diabetes: care instructions Not available 01/22/2023 11:16:34 Continue to work on diet and decrease A1C to < 7 with fasting glucose 100. Need to see eye dr. each year for dilated eye exam. Increase activity level to get exercise most days of the week. Work on eating more fresh fruit, veggies and lean protein and less packaged foods. Cut back on the fatty foods, add fish oil or omega three fatty acids; red yeast rice may also help. Drink more water! Low salt diet. Take all medications as prescribed. Keep appointments with PCP and all specialists. Not available 01/22/2023 14:03:12 keep f/u as planned Not available 01/22/2023 14:03:17 04/23/2023 [id number] cholesterol and triglycerides tests: about these tests Not available 04/23/2023 09:28:09 learning about type 2 diabetes Not available 04/23/2023 09:28:09 type 2 diabetes: care instructions Not available 04/23/2023 09:28:10 learning about mood disorders Not available 04/23/2023 09:28:10 A healthy lifestyle: care instructions Not available 04/23/2023 09:28:10 Continue to work on diet and decrease A1C to < 7 with fasting glucose 100. Need to see eye dr. each year for dilated eye exam. Increase activity level to get exercise most days of the week. Work on eating more fresh fruit, veggies and lean protein and less packaged foods. Cut back on the fatty foods, add fish oil or omega three fatty acids; red yeast rice may also help. Drink more water! Low salt diet. Take all medications as prescribed. Keep appointments with PCP and all specialists. Not available 04/23/2023 09:16:56 f/u 6 months [facility]P barriers to care: none Not available 04/23/2023 09:32:08 10/22/2023 [id number] cholesterol and triglycerides tests: about these tests Not available 10/22/2023 09:07:39 learning about type 2 diabetes Not available 10/22/2023 09:07:39 type 2 diabetes: care instructions Not available 10/22/2023 09:07:39 learning about mood disorders Not available 10/22/2023 09:07:39 A healthy lifestyle: care instructions Not available 10/22/2023 09:07:39 Continue to work on diet and decrease A1C to < 7 with fasting glucose 100. Need to see eye drShanna each year for dilated eye exam. Increase activity level to get exercise most days of the week. Work on eating more fresh fruit, veggies and lean protein and less packaged foods. Cut back on the fatty foods, add fish oil or omega three fatty acids; red yeast rice may also help. Drink more water! Low salt diet. Take all medications as prescribed. Keep appointments with PCP and all specialists. Not available 10/22/2023 08:58:40 f/u 6 months DWP barriers to care: none Not available 10/22/2023 08:58:41 04/25/2024 [id number] high cholesterol : care instructions Not available 04/25/2024 18:16:14 A healthy lifestyle: care instructions Not available 04/25/2024 18:15:58 learning about type 2 diabetes Not available 04/25/2024 18:14:56 type 2 diabetes: care instructions Not available 04/25/2024 18:14:56 learning about mood disorders Not available 04/25/2024 18:16:32 Increase intake of fresh fruits, and vegetables. Avoid packaged foods and fast foods. Follow a low salt diet, drink at least 8-10 8oz glasses of water a day, exercise most days of the week. Take all medications as prescribed. Keep appointments with PCP and all specialists. Not available 04/25/2024 18:15:07 follow up in 6 months Not available 04/25/2024 18:15:01 05/26/2024 [id number] Take all antibiotics prescribed to you. If any fever or increase in pain, call/return to office. Not available 05/26/2024 16:25:30 follow up as needed Not available 05/26/2024 16:25:42 Reason for Referral None Reported. Results Created Date Observation Date Name Description Value Unit Range Abnormal Flag Note LastModifiedBy Organization Detail LastModifiedTime 01/23/20 23 01/22/2023 HbA1c (hemo globi n A1c), blood HbA1c 5.7 Not Available In-Office Order Internal Use Only DO Not Attach Compendium DO Not Attach Compendium, Do Not Delete/merge, [id number] 01/22/2023 11:15:47 05/04/19 24 05/04/2023 COLOG UARD cologuard result reportable Negati ve negati ve normal NEGAT EMERSON TEST RESUL T. A negat emerson Colog uard resul t indic ates a low likel ihood that a color ectal cance r (CRC) or advan usdha adeno ma (zarina omato us polyp s with more advan sudha pre-m align ant featu res) is prese nt. The [facility] that a perso n with a negat emerson Colog uard test has a color ectal cance r is less than 1 in 1500 (nega tive predi ctive value >99.9 %) or has an advan sudha adeno ma is less than 5.3% (nega tive predi ctive value 94.7% ). These data are based on a prosp ectiv e cross -sect ional study of , 0 indiv idual s at [place] risk for color ectal cance r who were scree kevin with both Colog uard and colon oscop y. (Sergio Patino et al, N Engl J Med 2014; 370(1 4):12 86-12 97) The dinorah l value (refe rence range ) for this assay is negat emerson. COLOG UARD RE-SC REENI NG RECOM MENDA TION: Perio dic color ectal cance r scree bassam is an impor tant part of preve ntive healt hcare for asymp tomat ic indiv idual s at [place] risk for color ectal cance r. Follo wing a negat emerson Colog uard resul t, the Ameri can Cance r Socie ty and U.S. Multi -Soci ety Task Force scree bassam guide lines recom mend a Colog uard re-sc reeni ng inter clif of 3 years . Refer ences : Ameri can Cance r Socie ty Guide line for Color ectal Cance r Scree bassam: https ://tatiana w.can cer.o rg/ca ncer/ colon -rect al-ca ncer/ detec tion- diagn osis- stagi ng/ac s-rec ommen datio ns.ht ml.; Daron HAIR, Delores RUSSELL, Mariposa MccabeK, Color ectal Cance r Scree bassam: Recom menda tions for Physi cians and Patie nts from the U.S. Multi -Soci ety Task Force on Color ectal Cance r Scree Rohith banegas rolog y 2017; 112:1 016-1 030. TEST DESCR IPTIO N: Starke site algor ithmi c rishabh sis of stool DNA-b iomar kers with hemog lobin immun oassa y. Quant itati ve value s of indiv idual bioma rkers are not repor table and are not assoc iated with indiv idual bioma rker resul t refer ence range s. Colog uard is inten ded for color ectal cance r scree bassam of adult s of eithe r sex, 45 years or older , who are at [facility] for color ectal cance r (CRC) . Colog uard has been appro mckenna for use by the U.S. FDA. The perfo rmanc e of Colog uard was estab lishe d in a cross secti onal study of [facility] adult s aged 50-84 . Colog uard perfo rmanc e in patie nts ages 45 to 49 years was estim ated by sub-g roup rishabh sis of near- age group s. Colon oscop ies perfo rmed for a posit emerson resul t may find as the most clini antoine signi miguelina jade n: color ectal cance r [4.0% ], advan sudha adeno ma (incl uding sessi le melchor doug polyp s great er than or equal to 1cm diame ter) [20%] or non- advan sudha adeno ma [31%] ; or no color ectal neopl daquan [45%] . These estim ates are deriv ed from a prosp ectiv e cross -sect ional scree bassam study of 10,00 0 indiv idual s at [facility] risk for color ectal cance r who were scree kevin with both Colog uard and colon oscop y. (Sergio Zepeda. et al, N Engl J Med 2014; 370(1 4):12 86-12 97.) Colog uard may produ ce a false negat emerson or false posit emerson resul t (no color ectal cance r or preca ncero us polyp prese nt at colon oscop y follo w up). A negat emerson Colog uard test resul t does not guara ntee the absen ce of CRC or advan sudha adeno ma (pre- cance r). The curre nt Colog uard scree bassam inter clif is every 3 years . (Amer ican Cance r Socie ty and U.S. Multi -Soci ety Task Force ). Colog uard perfo rmanc e data in a 10,00 0 patie nt pivot al study using colon oscop y as the refer ence metho d can be acces sed at the follo wing locat ion: www.e xactl abs.c om/re ricky . Addit ional descr iptio n of the Colog uard test proce ss, warni ngs and preca ution s can be found at www.c ologu izabela.c om. Not Available [facility] (Cologuard Orders Only) [address], [place], [address], 05/09/2023 12:59:51 04/26/19 25 04/25/2024 HbA1c (hemo globi n A1c), blood HbA1c 5.2 Not Available In-Office Order Internal Use Only DO Not Attach Compendium DO Not Attach Compendium, Do Not Delete/merge, [id number] 04/25/2024 16:53:24 07/24/19 24 07/06/2023 sleep study , diagn ostic (PROC ) No observ ation record ed. Pastor [address] [place], [address], 07/28/2023 08:41:27 Result Notes None recorded. Problems Name Problem SNOMED Code Status Onset Date Resolution Date Notes Provider Name and Address Organization Details Recorded Time Unilater al hearing loss Active 2007 right more than left Sarah Hopper PA-C Attn: Ana Lilia mcmahan,[address] [facility], [place], [address], [place] - [facility] 8 21:36:13 Allergic rhinitis 07723239 Active 2017 Sarah Hopper PA-C Attn: Ana Lilia mcmahan,[address] [facility], [place], [address], [place] - [facility] 8 21:41:14 Dizzines s 561812609 Active 2017 Sarah Hopper PA-C Attn: Ana Lilia mcmahan,[address] [facility], [place], [address], [place] [facility] 8 21:41:25 Mixed hyperlip idemia 087449310 Active 2018 Sarah Hopper PA-C Attn: Ana Lilia mcmahan,[address] [facility], [place], [address], [place] - [facility] 9 11:42:11 Hypergly cemia 81819988 Completed 202001/24/2022 Radha Bella APN, FNP-C Attn: Ana Lilia mcmahan,[address] [facility], [place], [address], [place] - [facility] 2 11:44:06 Type 2 diabetes mellitus 24162699 Active 2021 Radha Bella APN, FNP-C Attn: Tomadam mcmahan,[address] [facility], [place], [address], [place] [facility] 2 11:42:56 Mixed anxiety and depressi ve disorder 274699188 Active Jackie garcia [place] - [facility] 6 09:49:37 Obesity 796699293 Completed 05/27/2016 Sarah Hopper PA-C Attn: Tomadam mcmahan,[address] [facility], [place], [address], [place] - [facility] 7 10:05:55 Sinusiti s 64858533 Completed 01/09/2016 Removal Reason: resolved Sarah Hopper PA-C Attn: Ana Lilia mcmahan,[address] [facility], [place], [address], [place] [facility] 6 09:13:18 Hyperten sive disorder 97282219 Active Jackie [place] null, [place] - [facility] 6 09:49:37 Polycyst ic ovaries Active 2008 Imani [place] null, [place] [facility] 5 11:46:23 Morbid obesity 047524601 Active Jackie [place] null, [place] [facility] 5 11:20:04 Gastroen teritis 85203354 Completed 01/09/2016 Removal Reason: resolved Sarah Hopper PA-C Attn: Ana Lilia mcmahan,[address] [facility], [place], [address], [place] [facility] 6 09:12:48 Upper respirat ory infectio n 52129853 Completed 01/09/2016 Removal Reason: resolved Sarah Hopper PA-C Attn: Ana Lilia mcmahan,[address] [facility], [place], [address], [place] [facility] 6 09:12:55 Vitamin D deficien cy 38922402 Active 2015 Sarah Hopper PA-C Attn: Ana Lilia mcmahan,[address] [facility], [place], [address], [place] - [facility] 6 09:52:00 Problem Notes None recorded. Procedures Surgical History Date Name Laterality Status Provider Name and Address Organization Details Recorded Time 1 Dilation and Curettage completed ANDIE Hayes [place] - [facility] 01/25/2021 10:37:42 6 IUD Removal completed Divya Chu PR - [facility] 01/15/2016 14:32:32 5 Date of Last Pap Smear completed Shoshana Carr PR - [facility] 10/20/2014 09:51:57 8 Eardrum revision completed Sarah Hopper PA-C Attn: Accounting,[address], [place], [address], [facility] - [facility] 09/07/2017 21:48:01 8 Extensive mastoid surgery completed Sarah Hopper PA-C Attn: Accounting,[address], [place], [address], [facility] - SI 09/07/2017 21:47:52 Imaging Results None recorded. Procedure Notes None recorded. Medical Equipment None Reported. Allergies No known drug allergies Medications Name Sig Start Date Stop Date Status Note LastModified by Organization Details LastModified Time losartan 50 mg tablet TAKE 1 TABLET BY MOUTH EVERY DAY 2024 active Not Available Not Available Not Avai lable amoxicilli n 500 mg capsule TAKE 1 CAPSULE BY MOUTH EVERY 8 HOURS FOR 10 DAYS 06/24 completed Not Available Not Available Not Available medroxypro gesterone 10 mg tablet TAKE 1 TABLET BY MOUTH EVERY DAY 01/25 completed Not Available Not Available Not Available metformin 500 mg tablet TAKE 2 TABLETS BY MOUTH TWICE A DAY FOR 90 DAYS 01/22 completed Not Available Not Available Not Available promethazi ne-DM 6.25 mg-15 mg/5 mL oral syrup Take 5 mL every 4 hours by oral route as needed. 06/01 completed Not Available Not Available Not Available Zyrtec-D 5 mg-120 mg tablet,ext ended release Take 1 tablet every 12 hours by oral route. 11/30 completed Not Available Not Available Not Available cetirizine 10 mg tablet TAKE 1 TABLET BY MOUTH EVERY DAY 01/22 completed Not Available Not Available Not Available azithromyc in 250 mg tablet TAKE 2 TABLETS BY MOUTH TODAY, THEN TAKE 1 TABLET DAILY FOR 4 DAYS 08/14 completed Not Available Not Available Not Available fluconazol e 150 mg tablet Take 1 tablet by oral route. 02/05 completed Not Available Not Available Not Available benzonatat e 200 mg capsule TAKE 1 CAPSULE BY MOUTH THREE TIMES A DAY NEEDED FOR 7 DAYS 08/14 completed Not Available Not Available Not Available citalopram 10 mg tablet Take 0.5 tablets every day by oral route for 14 days. 02/05 completed Not Available Not Available Not Available meloxicam 15 mg tablet TAKE ONE TABLET BY MOUTH ONE TIME DAILY 04/22 completed pt stated she is not taking this med 7 Not Available Not Available Not Available meclizine 12.5 mg tablet Take 1 tablet 3 times a day by oral route as needed. 01/20 completed prn Not Available Not Available Not Available metronidaz ole 500 mg tablet Take 1 tablet twice a day by oral route. 02/05 completed Not Available Not Available Not Available phentermin e 37.5 mg tablet 01/25 completed Not Available Not Available Not Available sulfametho xazole 800 mg-trimeth oprim 160 mg tablet Take 1 tablet every 12 hours by oral route for 10 days. 04/20 completed Not Available Not Available Not Available lovastatin 10 mg tablet TAKE 1 TABLET BY MOUTH EVERY DAY 08/10 completed pt did not like how she felt after taking Not Available Not Available Not Available tramadol 50 mg tablet active Not Available Not Available Not Available amoxicilli n 500 mg tablet Take 2 tablets every 8 hours by oral route for 5 days. 09/07 completed Not Available Not Available Not Available amoxicilli n 875 mg tablet TAKE 1 TABLET BY MOUTH TWICE A DAY FOR 7 DAYS 04/25 completed Not Available Not Available Not Available citalopram 20 mg tablet TAKE ONE TABLET BY MOUTH EVERY DAY. active Not Available Not Available No t Available benzonatat e 100 mg capsule Take 1 capsule 3 times a day by oral route as needed. 03/25 completed Not Available Not Available Not Available flunisolid e 25 mcg (0.025 %) nasal spray [place] 2 sprays twice a day by intranas al route as needed. 07/09 completed Not Available Not Available Not Available buspirone 10 mg tablet TAKE ONE TABLET BY MOUTH TWICE DAILY 07/09 completed Not Available Not Available Not Available lisinopril 10 mg tablet Take 1 tablet every day by oral route. active Not Available Not Available No t Available misoprosto l 200 mcg tablet 06/24 completed Not Available Not Available Not Available losartan 25 mg tablet TAKE 2 TABLETS BY MOUTH EVERY DAY active Not Available Not Available No t Available ibuprofen 600 mg tablet 12/16 completed Not Available Not Available Not Available methylpred nisolone 4 mg tablets in a dose pack TAKE 1 DOSE PACK BY MOUTH DIRECTED 06/24 completed Not Available Not Available Not Available fluticason e propionate 50 mcg/actuat ion nasal spray,susp ension USE 1 SPRAY IN EACH NOSTRIL TWICE A DAY NEEDED 12/02 completed prn Not Available Not Available Not Available loratadine 10 mg tablet TAKE 1 TABLET BY MOUTH EVERY DAY 02/01 completed Not Available Not Available Not Available amoxicilli n 875 mg-potassi um clavulanat e 125 mg tablet TAKE 1 TABLET BY MOUTH EVERY 12 HOURS FOR 7 DAYS active Not Available Not Available No t Available ezetimibe 10 mg tablet TAKE 1 TABLET BY MOUTH EVERY DAY active Not Available Not Available No t Available eszopiclon e 2 mg tablet TAKE 1 TABLET BY MOUTH ON NIGHT OF SLEEP STUDY 10/21 completed Not Available Not Available Not Available Vitamin D 1000 iu daily 01/08 completed Not Available Not Available Not Available ProAir HFA 90 mcg/actuat ion aerosol inhaler 02/01 completed Not Available Not Available Not Available cholecalci ferol (vitamin D3) 25 mcg (1,000 unit) tablet TAKE 2 TABLETS BY MOUTH EVERY DAY 2024 active Not Available Not Available Not Avai lable hydrochlor othiazide 12.5 mg tablet TAKE 1 TABLET BY MOUTH EVERY DAY 2024 active Not Available Not Available Not Avai lable OneTouch Verio test strips USE TO TEST BLOOD SUGAR DAILY active Not Available Not Available No t Available Trulicity 1.5 mg/0.5 mL subcutaneo us pen injector INJECT 1.5 MG SUBCUTAN EOUSLY ONE TIME PER WEEK 05/06 completed Not Available Not Available Not Available Trulicity 0.75 mg/0.5 mL subcutaneo us pen injector INJECT 0.75MG SUBCUTAN EOUSLY ONE TIME PER WEEK 03/25 completed Not Available Not Available Not Available Blisovi 24 Fe 1 mg-20 mcg (24)/75 mg (4) tablet TAKE 1 TABLET BY MOUTH EVERY DAY 08/14 completed Not Available Not Available Not Available Aurovela Fe 1-20 (28) 1 mg-20 mcg (21)/75 mg (7) tablet TAKE 1 TABLET BY MOUTH EVERY DAY active Not Available Not Available No t Available OneTouch Delica Plus Lancet 33 gauge USE 1 LANCET DAILY FOR TESTING active Not Available Not Available No t Available OneTouch Verio Reflect Meter active Not Available Not Available Not Available Trulicity 3 mg/0.5 mL subcutaneo us pen injector INJECT 3 MG UNDER THE SKIN WEEKLY 06/24 completed Not Available Not Available Not Available Trulicity 4.5 mg/0.5 mL subcutaneo us pen injector INJECT 4.5 MG UNDER THE SKIN ONCE WEEKLY 10/21 completed Not Available Not Available Not Available Paxlovid 300 mg (150 mg x 2)-100 mg tablets in a dose pack TAKE 2 TABLETS OF NIRMATRE LVIR WITH 1 TABLET OF RITONAVI R TOGETHER BY MOUTH TWICE DAILY FOR 5 DAYS 03/25 completed Not Available Not Available Not Available Mounjaro 7.5 mg/0.5 mL subcutaneo us pen injector INJECT THE CONTENTS OF 1 PEN UNDER THE SKIN ONCE WEEKLY 05/26 completed Not Available Not Available Not Available Mounjaro 5 mg/0.5 mL subcutaneo us pen injector INJECT 5 MG (0.5 ML) SUBCUTAN EOUSLY WEEKLY 10/21 completed Not Available Not Available Not Available Mounjaro 10 mg/0.5 mL subcutaneo us pen injector INJECT 10 MG SUBCUTAN EOUSLY WEEKLY 05/26 completed Not Available Not Available Not Available Mounjaro 12.5 mg/0.5 mL subcutaneo us pen injector INJECT THE CONTENTS OF 1 PEN UNDER THE SKIN ONCE WEEKLY active Not Available Not Available No t Available Mounjaro 2.5 mg/0.5 mL subcutaneo us pen injector INJECT THE CONTENTS OF 1 PEN UNDER THE SKIN ONCE WEEKLY X4 WEEKS 10/21 completed Not Available Not Available Not Available Vitals Date Recorded Body height Body mass index (BMI) Body weight Oxygen saturation Oxygen saturation in Arterial blood by Pulse oximetry Heart rate Respiratory rate Body temperature Systolic And Diastolic Provider Name and Address Organization Details Last Updated DateTime 162.56 cm 44.6 kg/m2 924709. 02 g 97 % 97 % 82 /min 16 /min 97.5 [degF] 130/92 mm[Hg] Sepideh Blair Rory [facility] 4 09:07:42 Date Recorded Body height Body mass index (BMI) Body weight Oxygen saturation Oxygen saturation in Arterial blood by Pulse oximetry Heart rate Body temperature Systolic And Diastolic Provider Name and Address Organization Details Last Updated DateTime 5 162.56 cm 39.4 kg/m2 114892. 45 g 99 % 99 % 84 /min 98.6 [degF] 118/79 mm[Hg] Katlyn Lebron MA [facility] 5 16:48:38 Date Recorded Body height Body mass index (BMI) Body weight Oxygen saturation Oxygen saturation in Arterial blood by Pulse oximetry Respiratory rate Body temperature Heart rate Systolic And Diastolic Provider Name and Address Organization Details Last Updated DateTime 5 162.56 cm 39.5 kg/m2 122584. 25 g 99 % 99 % 16 /min 98 [degF] 84 /min 132/84 mm[Hg] Sepideh Blair [facility] 5 16:03:50 Date Recorded Body height Body mass index (BMI) Body weight Oxygen saturation Oxygen saturation in Arterial blood by Pulse oximetry Heart rate Respiratory rate Body temperature Systolic And Diastolic Provider Name and Address Organization Details Last Updated DateTime 4 162.56 cm 42.8 kg/m2 481593. 58 g 98 % 98 % 83 /min 16 /min 98.2 [degF] 135/85 mm[Hg] Gifty Nazario MA [facility] 4 08:53:14 Date Recorded Body height Body mass index (BMI) Body weight Oxygen saturation Oxygen saturation in Arterial blood by Pulse oximetry Heart rate Body temperature Systolic And Diastolic Provider Name and Address Organization Details Last Updated DateTime 3 162.56 cm 44 kg/m2 317968. 72 g 98 % 98 % 92 /min 97.5 [degF] 122/80 mm[Hg] Sepideh Blair [facility] 3 11:07:02 Social History Question Answer Notes LastModified by Organizat ion Details LastModified Time Tobacco Smoking Status Never Smoker Blaine Givens MA null, [facility] 06/20/2014 09:16:01 Do You Have An Advance Directive? No Information not available 12/02/2018 Are You Blind Or Do You Have Difficulty Seeing? No Information not available 01/25/2021 Is Blood Transfusion Acceptable In An Emergency? Yes Information not available 10/13/2014 What Is Your Level Of Caffeine Consumption? Occasional Coffee Information not available 04/23/2023 How Much Tobacco Do You Chew? None Information not available 10/13/2014 In The 14 Days Before Symptom Onset, Have You Had Close Contact With A Laboratory-confir med COVID-19 While That Case Was Ill? No Information not available 06/02/2019 In The 14 Days Before Symptom Onset, Have You Had Close Contact With A Person Who Is Under Investigation For COVID-19 While That Person Was Ill? No [email or web address] Information not available 10/22/2021 Have You Been To An Area Known To Be High Risk For COVID-19? No Information not available 06/02/2019 Are You Deaf Or Do You Have Serious Difficulty Hearing? No Information not available 01/25/2021 What Type Of Diet Are You Following? REGULAR Information not available 01/22/2023 Which Illicit Or Recreational Drugs Have You Used? No Information not available 10/13/2014 Education 2 Year College Information not available 10/13/2014 Are There Any Guns Present In Your Home? No Information not available 10/13/2014 Hard Of Hearing Or Deaf In One Or Both Ears? Yes Bilateral, Right Worse Than Left (30%) Information not available 09/07/2017 Legally Blind In One Or Both Eyes? No Information no t available 10/13/2014 Live Alone Or With Others? With Others Information not available 10/13/2014 Marital Status Informatio n not available 10/13/2014 What Was The Date Of Your Most Recent Tobacco Screening? 05/26/2024 Information not available 05/26/2024 How Many Children Do You Have? 2 Adopted Information not available 10/13/2014 Performs Monthly Self-breast Exam? No Information no t available 10/13/2014 Do You Use Protection During Sex? No Information not available 02/02/2015 What Is Your Relationship Status? Information not available 10/13/2014 Do You Use Your Seat Belt Or Car Seat Routinely? Yes [email or web address] Information not available 11/15/2021 Seat Belts Used Routinely Yes Information not available 10/13/2014 Are You Sexually Active? Yes Information not available 02/02/2015 Smoke Alarm In Home Yes Information not available 11/17/2014 Do You Have Smoke And Carbon Monoxide Detectors In Your Home? Yes [email or web address] Information not available 03/25/2022 Are You Passively Exposed To Smoke? No [email or web address] Information no t available 11/15/2021 How Much Tobacco Do You Smoke? No Information not available 08/10/2018 General Stress Level Medium Information not available 02/02/2015 Do You Use Sunscreen Routinely? Yes Information not available 10/13/2014 Has Tobacco Cessation Counseling Been Provided? Yes [email or web address] Information not available 03/25/2022 On What Date Was Tobacco Cessation Counseling Provided? 05/26/2024 Information not available 05/26/2024 Sex: Female Functional Status Question Answer Note LastModified by Organizat ion Details LastModified Time Do you use any illicit or recreational drugs? No Information not available 01/25/2021 Do you or have you ever used any other forms of tobacco or nicotine? No Information not available 01/25/2021 What is your level of alcohol consumption? None [email or web address] Information not available 03/25/2022 Do you or have you ever used smokeless tobacco? Never used smokeless tobacco Information not available 12/02/2018 Are you currently employed? Yes Information not available 10/13/2014 Are you able to care for yourself? Yes Information not available 01/25/2021 What is your occupation? [employer] [email or web address] Information not available 06/24/2022 Do you or have you ever used e-cigarettes or vape? Never used electronic cigarettes Information not available 12/02/2018 What is your exercise level? None Information not available 01/22/2023 Mental Status Question Answer Note LastModified by Organizat ion Details LastModified Time Do you feel stressed (tense, restless, nervous, or anxious, or unable to sleep at night)? [id number] stress [email or web address] Information not available 04/25/2024 Family History Relationship Description Onset Age of this Age Resolved Age Notes LastModified by Organization Details LastModified Time Father Diabetes mellitus Not available 2014 11:46:55 Father Heart disease Not available 2014 11:46:55 Father Hypertensive disorder Not available 2014 11:46:55 Maternal Grandmother Malignant neoplasm of ovary 36 [email or web address] Not available 02/2015 10:49:03 Maternal Grandmother Diabetes mellitus Not available 2014 11:46:55 Maternal Grandmother Heart disease Not available 2014 11:46:55 Maternal Grandmother Hypertensive disorder Not available 2014 11:46:55 Paternal Grandfather Heart disease [email or web address] Not available 2015 10:38:39 Paternal Grandfather Diabetes mellitus [email or web address] Not available 2015 10:38:49 Medical History Condition Response Other N High Blood Pressure Y Depression N Headaches/Migraines N Anxiety Disorder Y Arthritis N Infertility N Polyps N Acid Reflux (GERD) N Cancer N Stroke N Fibromyalgia N Kidney Disease N Heart Problems N Kidney or Bladder Problems N Acne N Eating Disorder N Asthma N Hepatitis N Breast Cancer N Lung Disease N Breast Problem N Anesthesia Complications N Endometriosis N High Cholesterol Y Thyroid Problems N GI Problems N Anemia N Ovarian Cancer N Diabetes N Blood Transfusions N Abuse/Domestic Violence N Heart Disease N Pre-Eclampsia N Hypertension Y Osteoporosis N Gynecological History Statement/Question Response Abnormal Pap N Flow Light Date of LMP 02/24/2020 STIs/STDs N HPV Vaccine N Age at Menarche 11 Current Control Method Partner Vas ectomy Sexually Active? Y Menses Monthly N Date of Last Pap Smear 10/13/2014 Sexual Problems? N LMP Approximate Desired Control Method None Obstetrics History GPAL:G 2 P 2 0 0 2 Type Value Multiple Births 0 Full Term 2 Induced 0 Spontaneous 0 Premature 0 Living 2 Ectopics 0 Total 2 Immunizations Vaccine Type Date Status Note Provider Name and Address Organization Details Recorded Time COVID-19, mRNA, LNP-S, PF, 30 mcg/0.3 mL dose 05/07/19 21 completed Not Available [facility] 05/27/2022 13:25:47 COVID-19, mRNA, LNP-S, PF, 30 mcg/0.3 mL dose 05/30/19 21 completed Not Available [facility] 05/27/2022 13:25:47 Influenza, split virus, quadrivalent, preservative 12/03/19 19 cancelled patient objection Not Available [facility] 03/12/2019 02:38:14 Tdap 02/23/19 07 completed Not Available [facility] 05/27/2022 13:25:47 COVID-19, mRNA, LNP-S, PF, 30 mcg/0.3 mL dose 02/26/19 22 completed Lillie Benjamin MA null, [place] [facility] 02/26/2021 16:29:22 Tdap 11/02/19 14 completed Not Available [facility] 05/27/2022 13:25:47 Past Encounters Encounter ID Performer Location Encounter Start Date Encounter Closed Date Diagnosis/Indication Diagnosis SNOMED-CT Code Diagnosis ICD10 Code Diagnosis Note [id number] TAMI Garzon- [facility] (Adult Med) [address] [place] [address] 06/20/2014 09:04:26 06/20/2014 09:58:28 Mixed anxiety and depressive disorder [id number] Patient to use coping techniques . Encourage her to make lists for the week. Work on home organizati on. Prep all meals on Thursday to lessen demand when returning home from work. 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 Limit fast food. Work on decreasing weight and get an exercise routine. History of PCOS. Patient needing to schedule [employer] apt for routine care. Dr. Vlad kim n given. Sinusitis 08273047 Hand hygiene. Encourage fluid intake. Nasal saline prn. Zpak ordered. Hypertensive disorder 79564816 Limit sodium < 2 gram daily. Limit caffeine. Low fat, low cholestero l foods. Starting lisinopril 10 mg daily. Endocrine/ metabolic screening 676540209 Patient was encouraged to take a MVI daily. Adult [facility] th examination 597265392 Encourage routine vision (april 2014), dental, priming mixture carrier exams. UTD on tdap. Declines flu shots. [id number] Jackie [place], [facility]- [facility] (Adult Med) [address] [place] [address] 07/21/2014 09:10:40 07/21/2014 12:09:01 Hypertensive disorder 60449655 Stop lisinopril 10 mg. Starting losartan 50 mg daily. Patient to continue BP log [facility] 1 week BP check or call with readings done with home BP monitor. Obesity 527434743 Patien t planning to go to weight watchers with program through [place]. Form completed. [facility] will cover 2 visits per year. [id number] MD [facility] Gonzalez ([facility]) [address] [place] [address] 10/13/2014 08:24:50 10/13/2014 09:25:00 Gynecologic examination 24353607 Normal female exam x morbid obesity. Pap done. Pt. gets fasting labs with PCP. Venereal d isease screening 864525280 RTO one week for results. Polycystic ovaries 61462972 Pt. with dx of PCOS from previous doctor. Will get records. She currently has the Mirena IUD. [id number] MD [facility] Gonzalez (RUBBER INSULATOR) [address] [place] [address] 10/20/2014 09:36:48 10/20/2014 11:23:26 Gynecologic examination 96565719 Pap was normal with negative hr-HPV, dwp. Venereal d isease screening 406065855 Vaginal culture was negative for GC, Chlam, and TV, dwp. STD panel was also completely negative. Individual test results d/w pt. [id number] MD [facility]omal Gonzalez (RUBBER INSULATOR) [address] [place] [address] 11/03/2014 13:46:03 11/03/2014 14:39:05 Morbid obesity 500555908 Specific food and work diary from yesterday discussed. Overall eating patterns discussed. Pt. doing very well with food choices. However, she is only taking in 1000 panfilo/day. Her goal should be 1500 to 1800, dwp. She is eating 4 meals and needs to be eating 6, dwp. Pt has lost 7 lbs. Pt. encouraged to continue to adjust her routine to make it easy to follow her weight loss goals. Pt. to increase calories. RTO 2 weeks and will add exercise if caloric intake permits. [id number] Jackie [place], [facility]- [place] (Adult Med) [address] [place] [address] 11/03/2014 14:41:49 11/03/2014 15:49:36 Obesity 742575670 Doing well with diet. Lost 8 lbs since last visit. Hypertensive disorder 60457279 Continue losartan. Mixed anxi ety and depressive disorder 268373536 Continue citalopram . [id number] MD Disha Gonzalezhalto (RUBBER INSULATOR) [address] [place] [address] 11/17/2014 09:11:27 11/17/2014 10:36:23 Morbid obesity 636166228 Specific food and work diary from yesterday discussed. Overall eating patterns discussed. Pt. still doing very well with food choices and has increased her Panfilo from 1000 to 1300. Her goal is 1500 to 1800, dwp. She is now eating 6 meals daily which is perfect, dwp. Pt weight has not changed despite eating more calories and has much more energy. Pt. to continue to increase her caloric intake to her goal and add exercise. Exercise plan with aerobics only for now d/w pt. Pt. will do HIT on the elliptical machine M-W-F for 20 min/day. Specific routine d/w pt. Will add strength training on altern g days when this routine is accomplish ed. RTO 2 weeks for follow up. [id number] MD Disha Gonzalezhalto (RUBBER INSULATOR) [address] [place] [address] 2014 10:19:52 2014 11:20:57 Morbid obesity 510471263 E66.01 Specific food and work diary from yesterday discussed. Overall eating patterns discussed. Pt. still doing very well with food choices. However, she has not increased her Panfilo from 1300 to her goal of 1500 to 1800, dwp. She is now eating 6 meals daily which is perfect, dwp. Pt has lost 4 lbs in the past 2 weeks and still has great energy. She has been doing the cardio workout -W- and likes it. Pt. to continue to increase her caloric intake to her goal, continue aerobic training, and add strength training or Sun. Routine discussed at length and written out for pt. She is now in a weight loss competitio n with her . Pt. encouraged to continue healthy choices and not decrease her calories too much because that is not sustainabl e. Pt. expressed understand ing. RTO 4 weeks for follow up. [id number] MD Komal Gonzalez (RUBBER INSULATOR) [address] [place] [address] 01/05/2015 11:20:57 01/05/2015 12:15:58 Morbid obesity 636459225 E66.01 Specific food and work diary from yesterday discussed. Overall eating patterns discussed. Pt. not doing as well with food choices. She also has not increased her Panfilo from 1300 to her goal of 1500 to 1800, dwp. She is now eating 6 meals daily which is perfect, dwp. Pt has lost 4 lbs in the past 2 weeks and still has great energy. She has added circuit training to the cardio workout --F and likes it. Pt. to continue to increase her caloric intake to her goal, continue aerobic training and circuit strength training or Sun. Routine discussed at length and written out for pt. Pt. encouraged to make healthier choices and to increase her calories. Pt. expressed understand ing. RTO 4 weeks for follow up. [id number] MD Komal Gonzalez (RUBBER INSULATOR) [address] [place] [address] 02/02/2015 11:23:35 02/02/2015 12:53:08 Morbid obesity 578715450 E66.01 Specific food and work diary from yesterday discussed. Overall eating patterns discussed. Pt. had some poor food choices yesterday but did not binge on them. She has increased her Panfilo from 1300 to her goal of 1500 to 1800, dwp. She is now eating 6 meals daily which is perfect, dwp. Need to combine protein and carbs discussed. She has continued circuit training with the cardio workout M-W- and is getting stronger. Pt. encouraged to keep up the good work. Precaution s for the holidays discussed. RTO 4 weeks for follow up. [id number] TOMA Garzon (Adult Med) [address] [place] [address] 02/06/2015 10:17:19 02/07/2015 12:10:38 Mixed anxiety and depressive disorder 018862912 F41.8 Continue citalopram 10 mg daily. Morbid obesity 470513631 E66.01 Diet and exercise to continue. Hypertensive disorder 38 288413 I10 Continue losartan 5 mg daily. < 2 gm sodium diet. Stay active. [id number] MD [facility] Bernal (Adult Med) [address] [place] [address] 03/30/2015 14:50:41 04/02/2015 16:05:20 Gastroenteritis 58249136 K52.9 Resolved. Mixed anxi ety and depressive disorder 245047440 F41.8 Continue citalopram but will increase to 20 mg daily. Obesity 142130203 E66.09 Doing well with diet. Lost 8 lbs since January! Down 45 lbs total. [id number] TOMA Garzon (Adult Med) [address] [place] [address] 06/08/2015 09:23:11 06/08/2015 16:46:31 Upper respiratory infection 46870616 J06.9 Use otc options. Antihistam ine 24 hour and afrin nasal decongesta nt prn. Mixed anxi ety and depressive disorder 289999354 F41.8 Continue citalopram 20 mg daily. Hypertensive disorder 38 145076 I10 Continue losartan 5 mg daily. < 2 gm sodium diet. Stay active. [id number] MD Komal Gonzalez (RUBBER INSULATOR) [address] [place] [address] 12/25/2015 10:17:04 12/26/2015 11:41:43 Gynecologic examination 35170745 Z01.419 Last pap done 10/20/14 was negative with negative hr-HPV. Therefore, no pap needed. Venereal d isease screening 599851934 Z11.3 RTO one week for results. Morbid obesity 219635888 E66.01 Pt. has not been managing her diet or exercise over the past 6 mo. d/t the of 2 of her friends and increased depression symptoms. She will get back to her previous routine. [id number] ALIREZA Hutchinson (Adult Med) [address] [place] [address] 01/09/2016 10:45:39 01/09/2016 16:40:49 Hypertensive disorder 94305298 I10 controlled , cont current dose, limit NSAID use; dwp weight loss Mixed anxi ety and depressive disorder 874899246 F41.8 Once buspirone started, taper citalopram : take 10mg daily for 2 weeks, then decrease to 5mg daily for 2 weeks then follow up and we will discuss anxiety and medication efficacy Body mass index 40+ - severely obese 016988938 Z68.41 10lb weight gain since Mar. continue exercise & working with workplace trainer and assessor, discussed improving diet choices. Pain of hip region 23555 002 M25.551 stop OTC ibuprofen, NSAIDs can increase BP so limit daily use to 2 weeks then take as needed. Vitamin D deficiency 347 95056 E55.9 Reviewed labs with patient, levels improved but still low, increase dose to 2000 iu daily Vaccine de clined by patient 3669427648 02 Z28.20 [id number] MD Komal Gonzalez (RUBBER INSULATOR) [address] [place] [address] 01/15/2016 13:47:20 01/16/2016 11:46:15 Venereal disease screening 210987872 Z11.3 Vaginal culture was positive for BV and yeast, dwp. See below. Vaginal culture was negative for gonorrhea, chalamydia , and trinchomon as, dwp. STD panel was also completely negative. Individual test results dwp. Bacterial vaginosis 4197 37318 N76.0 Candidal vulvovaginitis 87774032 B37.3 Removal of intrauterine device 49899428 Z30.432 Benefits, risks, and alternativ es to Mirena IUD removal d/w pt. Pt. expressed understand ing. All pt. questions answered. Consent signed and in chart. Mirena IUD was removed per protocol and without difficulty . Please see procedure note for details. Pt. tolerated the procedure well. [id number] ALIREZA Hutchinson (Adult Med) [address] [place] [address] 02/06/2016 09:16:07 02/06/2016 10:28:14 Hypertensive disorder 76009768 I10 mildly elevated today; cont current dose of losartan, cont exercise & try to limit holiday sweets, cont low salt diet. Mixed anxi ety and depressive disorder 446820713 F41.8 Effectivel y weaned off citalopram , anxiety well controlled on Buspar, cont current med Pain of hip region 92482 002 M25.551 stop OTC ibuprofen, NSAIDs can increase BP so limit daily use to 2 weeks then take as needed. [id number] ALIREZA Hutchinson (Adult Med) [address] [place] [address] 05/27/2016 09:33:51 05/27/2016 14:15:24 Hypertensive disorder 74111272 I10 Continue with dietary changes, cont exercising for weight loss. Cont same dose of losartan. Mixed anxi ety and depressive disorder 749170905 F41.8 Effectivel y weaned off citalopram , anxiety well controlled on Buspar, cont current dose Morbid obesity 383304736 E66.01 BMI 43.9. dwp that she needs to disassocia te food and well being. Use food only as a means to fuel the body. Given 1800 panfilo meal planning guide and discussed being more consistent . Throw out unhealthy snacks from house. If she cheats then make up for it later. Discussed meal planning for the weak and making big batches of veggies as base for dinners during the week, etc. Cont working out. [id number] ALIREZA Hutchinson (Adult Med) [address] [place] [address] 09/02/2016 08:31:32 09/03/2016 09:29:18 Hypertensive disorder 54847630 I10 Controlled , cont same dose of losartan. Swelling may be due to high salt diet, reduce salt intake. hesitate to add diuretic w/ good control and already c/o dizziness Mixed anxi ety and depressive disorder 079619674 F41.8 anxiety well controlled on Buspar, cont current dose Morbid obesity 794292846 E66.01 reviewed weight with patient, she understand s reason is unhealthy eating habits, stopping exercise. she will meet w/ nutritioni st and go over plan for weight loss. Once papers are turned in she will start working out with friend again. Abdominal bloating 73592 9008 R14.0 no FHx of celiac disease, but pt has had more bloating & abdominal pain. admits she has not been eating well. she has appt w/ nutritioni st this week and will discuss diet with her. Allergic rhinitis 193023 04 J30.9 Dizziness 009652060 R42 possibly due to her sinus congestion , no fluid to right ear but cyst-like lesion, with h/o TM repair recommend she establish w/ ENT here, last specialist was in [place] many years ago [id number] MD Komal Solis (Adult Med) [address] [place] [address] 12/16/2016 09:19:28 12/18/2016 17:48:00 Hypertensive disorder 41481835 I10 Controlled , cont same dose of losartan. Encouraged to exercise more regularly Mixed anxi ety and depressive disorder 177398439 F41.8 anxiety well controlled on Buspar, cont current dose Allergic rhinitis 701355 04 J30.9 flonase not working, congested all the time. She doesn't want to take any more pills. Consider changing type of nasal spray per insurance formulary. Body mass index 40+ - severely obese 156449085 Z68.41 Continue to work on exercising more consistent ly. Reduce stress eating. Vaccine de clined by patient 1111796837 02 Z28.21 refused flu shot [id number] MD Komal Gonzalez (RUBBER INSULATOR) [address] [place] [address] 01/14/2017 09:46:48 01/19/2017 14:39:28 Gynecologic examination 55868731 Z01.411 Last pap done 10/13/14 was negative with negative hr-HPV. Therefore, no pap needed. Screening for malignant neoplasm of breast 560782800 Z12.31 Body mass index 40+ - severely obese 360362544 Z68.42 Nutrition and exercise discussed. [id number] MD Disha Solishalto (Adult Med) [address] [place] [address] 04/22/2017 09:20:32 04/22/2017 15:54:16 Hypertensive disorder 20576176 I10 Controlled , cont same dose of losartan. Encouraged to exercise more regularly, cont to work on weight loss Mixed anxi ety and depressive disorder 493400728 F41.8 anxiety well controlled on Buspar, cont current dose Vitamin D deficiency 347 88133 E55.9 still taking daily supplement Body mass index 40+ - severely obese 911773937 Z68.41 down almost 10 lbs since Dec. Continue to work on exercising more consistent ly, cont healthy diet. Hyperlipidemia 51309282 E78.2 borderline elevated LDL, cont diet and work on increasing exercise and continued weight loss [id number] [facility] [address] [place] [address] 07/09/2017 09:16:54 07/10/2017 08:50:35 Hypertensive disorder 91775978 I10 Controlled , cont same dose of losartan. Encouraged to exercise more regularly, cont to work on weight loss. Dizziness 984428419 R42 possibly due to sinus/alonzo rgies. treat with meclizine PRN and treat for possible ear infection. If persists, monitor BP for possible hypotensio n type dizziness. Allergic rhinitis 938421 04 J30.9 not using flonase, other nasal steroid not approved by insurance. start allergy med, restart flonase if congestion worsens. Acute otitis media 16063 03 H65.01 treat for possible infection, difficult to assess due to surgical changes to TM, but pt is symptomati c. [id number] MD Komal Solis (Adult Med) [address] [place] [address] 09/07/2017 09:53:33 09/09/2017 12:17:33 Hypertensive disorder 91680753 I10 persistent ly elevated diastolic pressure; start low dose diuretic. monitor BP at gym or stores. Call if any new dizziness/ lightheade dness. Allergic rhinitis 484270 04 J30.9 not using flonase, other nasal steroid not approved by insurance. cont allergy med, restart flonase if congestion worsens. Dizziness 938381293 R42 pt feels it is from 3 changes in generic BP meds, but it is improving w/ [facility] version. Recommend she also cont to treat nasal congestion . Body mass index 40+ - severely obese 230877338 Z68.41 Z68.42 6lb weight gain since last visit. Restart diet and exercise. Hyperlipidemia 80906823 E78.2 borderline elevated LDL, cont diet and work on increasing exercise and continued weight loss [id number] MD Komal Solis (Adult Med) [address] [place] [address] 01/20/2018 10:07:04 01/21/2018 12:25:51 Hypertensive disorder 08894764 I10 controlled , cont losartan and hctz; work on diet and weight loss. Allergic rhinitis 287629 04 J30.9 Worse rhinorrhea in winter time. She is worried about CSF fluid leak w/ HTN meds. dwp CSF leak is extremely rare, she has had ENT eval and imaging w/ negative findings so likelihood of CSF leak is very very low. Morbid obesity 860330006 E66.01 discussed again improving diet, reducing calories, continue working out. Mixed hyperlipidemia 267 785327 E78.2 reviewed labs w/ patient, increased triglyceri ed and LDL, recommend diet for now, repepat labs in 3 mo, if not better, then recommend starting statin. She is agreeable to this plan. Hyperglycemia 01997385 R 73.9 was fasting at time of labs, glucose 130s. discussed need to follow low carb diet, maybe try for 25g carb/day. cont to work out and try for 1lb weight loss/week. check A1c at next appt. [id number] MD Komal Solis (Adult Med) [address] [place] [address] 04/01/2018 08:39:31 04/02/2018 08:47:17 Has a sore throat 427255395 J02.9 cont loratadine , coricidin HBP, salt water gargles, hydrate well. Congestion of nasal sinus 95388112 R09.81 left more than right, restart flonase, cont loratadine . Viral uppe r respiratory tract infection 444713802 J06.9 sxs present for 2 days, cont supportive care, call Thursday if sxs worsening and we can call in abx. Hydrate well. [id number] MD Komal Solis (Adult Med) [address] [place] [address] 04/20/2018 09:48:54 04/22/2018 19:00:34 Hypertensive disorder 41859561 I10 controlled , cont losartan and hctz; work on diet and weight loss. Cont low salt Mixed anxi ety and depressive disorder 971044258 F41.8 anxiety well controlled on Buspar, cont current dose Allergic rhinitis 100269 04 J30.9 fair control, no URI at this time. Hyperlipidemia 23373797 E78.2 Reviewed cholestero l labs, she has been trying diet & exercise w/o results, recommend she start statin. Discussed common side effects, call if any problems with medication , we will repeat labs at next visit. [id number] MD Komal Solis (Adult Med) [address] [place] [address] 08/10/2018 11:24:17 08/12/2018 11:43:45 Hypertensive disorder 15511540 I10 controlled , cont losartan and hctz; work on diet and weight loss. Cont low salt. Mixed hyperlipidemia 267 054302 E78.2 she tried lovastatin and didn't like it, felt wierd and wants to continue working on diet & exercise. Mixed anxi ety and depressive disorder 206334641 F41.8 Off all her medication s and doing fine, no panic attacks, no SI or HI Polycystic ovaries 74468 008 E28.2 she is reluctant to try metformin for PCOS and hyperglyce pablo, wants to do diet & exercise Screening for malignant neoplasm of breast 137122370 Z12.31 Not comfortabl e with getting mammogram, asking if we can do labs instead:es tradiol, estrone, estriol, 16-hydroxi zone, 4-hydroxye strone, 2-hydroxye strone, 2-methoxye strone; 2 hydroxyest radiol, 4-hdyroxye stradiol, 2-methoxye stradiol dwp that these labs are not available through [facility]. She deferred mammogram at this time. Hyperglycemia 80979993 R 73.9 she is having hard time losing weight; discussed getting back on low carb diet and start working out w/ either workplace trainer and assessor or workout partner Body mass index 40+ - severely obese 360152252 Z68.41 Z68.42 follow heart healthy diet and exercise 20min 3 days a week, goal of losing 1-2 lbs a week [id number] MD Komal Escamilla (Adult Med) [address] [place] [address] 12/02/2018 13:46:54 12/03/2018 11:04:32 Influenza vaccination declined 811664476 Z28.21 refused Hypertensive disorder 38 172922 I10 controlled , cont losartan and hctz; work on diet and weight loss. Cont low salt. Mixed hyperlipidemia 267 325378 E78.2 she tried lovastatin and didn't like it, felt wierd and wants to continue working on diet & exercise. Mixed anxi ety and depressive disorder 287146287 F41.8 Off all her medication s and doing fine, no panic attacks, no SI or HI Hyperglycemia 83748794 R 73.9 she is having hard time losing weight; discussed getting back on low carb diet and start working out w/ either workplace trainer and assessor or workout partner Polycystic ovaries 93397 008 E28.2 she is reluctant to try metformin for PCOS and hyperglyce pablo, wants to do diet & exercise; seeing gyne, Obesity 455711617 E66.9 advised low fat, low cholestero l diet, regular exercise and weight reduction. Allergic rhinitis 786732 04 J30.9 controlled , cont claritin qd Vitamin D deficiency 347 97392 E55.9 cont replacemen t [id number] MD Komal Escamilla (Adult Med) [address] [place] [address] 01/11/2019 16:39:11 01/19/2019 08:55:37 Nasal congestion 87169837 R09.81 acute congestion , dwp zyrtec d for a few days to relieve symptoms Acute sinusitis 37300092 J01.90 sinus pressure with purulent drainage, start amox 500 mg TID x 10 days [id number] MD Komal Escamilla (Adult Med) [address] [place] [address] 02/01/2019 11:56:01 02/02/2019 09:10:27 Acute sinusitis 81364733 J01.90 sinus pressure with purulent drainage, took amox and only had slight improvemen t, will change to bactrim Acute bronchitis 3770326 2 J20.9 rhonchi present, rx for tessalon perles [id number] MD Komal Escamilla (Adult Med) [address] [place] [address] 04/20/2019 11:54:57 04/21/2019 08:17:56 Upper respiratory infection 40529125 J06.9 dwp to increase fluids, OTC cold med prn, rest, good handwashin g [id number] MD Komal Escamilla (Adult Med) [address] [place] [address] 06/02/2019 08:25:39 06/03/2019 09:26:09 Hypertensive disorder 24746819 I10 controlled , cont losartan and hctz; work on diet and weight loss. Cont low salt. Mixed hyperlipidemia 267 052289 E78.2 she tried lovastatin and didn't like it, felt wierd and wants to continue working on diet & exercise. Mixed anxi ety and depressive disorder 952521631 F41.8 Off all her medication s and doing fine, no panic attacks, no SI or HI Vitamin D deficiency 347 66760 E55.9 cont replacemen t [id number] MD Komal Escamilla (Adult Med) [address] [place] [address] 2019 08:18:10 12/20/2019 15:15:17 Mixed hyperlipidemia 621483073 E78.2 she tried lovastatin and didn't like it, felt wierd and wants to continue working on diet & exercise. Hypertensive disorder 38 204131 I10 controlled , cont losartan and hctz; work on diet and weight loss. Cont low salt. Vitamin D deficiency 347 15874 E55.9 cont replacemen t Mixed anxi ety and depressive disorder 593923753 F41.8 Off all her medication s and doing fine, no panic attacks, no SI or HI [id number] MD Komal Escamilla (Adult Med) [address] [place] [address] 01/25/2021 10:15:01 01/28/2021 08:36:50 Hyperglycemia 52121671 R73.9 she is having hard time losing weight; discussed getting back on low carb diet and start working out w/ either workplace trainer and assessor or workout partner, [facility] starting [facility] and will titrate up to 2 tabs bidwas 5.7 at prior pcp Mixed hyperlipidemia 267 029544 E78.2 will not take statins,di et advised Hypertensive disorder 38 321415 I10 controlled , cont losartan and hctz; work on diet and weight loss. Cont low salt. Vitamin D deficiency 347 76932 E55.9 cont replacemen t Mixed anxi ety and depressive disorder 435844050 F41.8 Off all her medication s and doing fine, no panic attacks, no SI or HI Acute otitis media 67477 03 H65.03 Harjinder TM erythema and edema/bulg ing [id number] MD Komal Escamilla (Adult Med) [address] [facility] [place] [address] 02/26/2021 09:22:08 02/27/2021 09:33:30 Administration of SARS-CoV-2 mRNA vaccine 6682945423 Z23 [id number] MD Komal Escamilla (Adult Med) [address] [facility] [place] [address] 08/14/2021 10:39:18 08/15/2021 08:17:46 Hyperglycemia 20641837 R73.9 she is having hard time losing weight; discussed getting back on low carb diet and start working out w/ either workplace trainer and assessor or workout partner,a1 c was 6.9 at [facility], starting metformin and will titrate up to 2 tabs bidwas 5.7 at prior pcp; today at 5.9not tolerating metformin well, will add trulicity and cut back on metformin Mixed hyperlipidemia 267 461424 E78.2 will not take statins,di et advised Hypertensive disorder 38 214580 I10 controlled , cont losartan and hctz; work on diet and weight loss. Cont low salt. Vitamin D deficiency 347 46448 E55.9 cont replacemen t Mixed anxi ety and depressive disorder 271325879 F41.8 Off all her medication s and doing fine, no panic attacks, no SI or HI Morbid obesity 910295782 E66.01 Encouraged routine [employer], vision, dental exams, well balanced diet. [id number] MD Komal Escamilla (Adult Med) [address] [place] [address] 10/22/2021 12:11:30 10/23/2021 10:16:24 Morbid obesity 759571330 E66.01 Encouraged routine [employer], vision, dental exams, well balanced diet. Acute bila teral otitis media 872917415 H66.93 Harjinder TM erythema and edema/bulg ing Dysfunctio n of eustachian tube 99013514 H68.013 clear fluid behind TM, dwp to start inhaled nasal steroid to reduce inflammati on [id number] MD Komal Escamilla (Adult Med) [address] [place] [address] 11/15/2021 09:22:43 11/18/2021 11:45:03 Hyperglycemia 14937921 R73.9 she is having hard time losing weight; discussed getting back on low carb diet and start working out w/ either workplace trainer and assessor or workout partner,a1 c was 6.9 at [facility], starting metformin and will titrate up to 2 tabs bidwas 5.7 at prior pcp; july 2021 was 5.9not tolerating metformin well, will add trulicity and cut back on metformin Mixed hyperlipidemia 267 958184 E78.2 will not take statinsdie t advised Hypertensive disorder 38 249499 I10 controlled , cont losartan and hctz; work on diet and weight loss. Cont low salt. Vitamin D deficiency 347 40336 E55.9 cont replacemen t Mixed anxi ety and depressive disorder 611958969 F41.8 Off all her medication s and doing fine, no panic attacks, no SI or HI Morbid obesity 430696425 E66.01 Encouraged routine [employer], vision, dental exams, well balanced diet. [id number] MD Komal Escamilla (Adult Med) [address] [place] [address] 03/25/2022 09:41:19 03/26/2022 09:12:15 Mixed hyperlipidemia 797852326 E78.2 will not take statins due to myalgia,di et advised Hypertensive disorder 38 634710 I10 controlled , cont losartan and hctz; work on diet and weight loss. Cont low salt. Vitamin D deficiency 347 38794 E55.9 cont replacemen t Mixed anxi ety and depressive disorder 009620408 F41.8 Off all her medication s and doing fine, no panic attacks, no SI or HI Morbid obesity 491742534 E66.01 Encouraged routine [employer], vision, dental exams, well balanced diet. Type 2 carmen betes mellitus 74337491 E11.9 she is having hard time losing weight; discussed getting back on low carb diet and start working out w/ either workplace trainer and assessor or workout partner, a1c was 6.9 at [facility], was 5.7 at prior pcp; july 2021 was 5.9 cont trulicity and cut back on metformin to 1 qd Endocrine/ metabolic screening 185374517 Z13.594 [id number] MD Komal Escamilla (Adult Med) [address] [place] [address] 06/24/2022 09:15:50 06/25/2022 14:15:17 Type 2 diabetes mellitus 41143003 E11.9 she is having hard time losing weight; discussed getting back on low carb diet and start working out w/ either workplace trainer and assessor or workout partner, [facility], was 5.7 at prior pcp; july 2021 was 5.9 cont trulicity and cut back on metformin to 1 qd Mixed hyperlipidemia 267 004390 E78.2 will not take statins due to myalgia,di et advised Hypertensive disorder 38 139135 I10 controlled , cont losartan and hctz; work on diet and weight loss. Cont low salt. Vitamin D deficiency 347 82896 E55.9 cont replacemen t Mixed anxi ety and depressive disorder 580873007 F41.8 Off all her medication s and doing fine, no panic attacks, no SI or HI Morbid obesity 457346882 E66.01 Encouraged routine [employer], vision, dental exams, well balanced diet. [id number] MD Komal Escamilla (Adult Med) [address] [place] [address] 10/21/2022 08:57:45 10/23/2022 08:32:44 Mixed hyperlipidemia 486039074 E78.2 will not take statins due to myalgia,di et advised Type 2 carmen betes mellitus 66101353 E11.9 she is having hard time losing weight; discussed getting back on low carb diet and start working out w/ either workplace trainer and assessor or workout partner, a1c was 6.9 at [facility], was 5.7 at prior pcp; july 2021 was 5.9, Sep 2022 5.1 cont trulicity and cut back on metformin to 1 qd Hypertensive disorder 38 480352 I10 controlled , cont losartan and hctz; work on diet and weight loss. Cont low salt. Vitamin D deficiency 347 24439 E55.9 cont replacemen t Mixed anxi ety and depressive disorder 981384376 F41.8 Off all her medication s and doing fine, no panic attacks, no SI or HI Morbid obesity 002285520 E66.01 Encouraged routine [employer], vision, dental exams, well balanced diet. [id number] MD Komal Escamilla (Adult Med) [address] [place] [address] 01/22/2023 10:52:38 01/23/2023 15:26:55 Type 2 diabetes mellitus 91688764 E11.9 she is having hard time losing weight; discussed getting back on low carb diet and start working out w/ either workplace trainer and assessor or workout partner, a1c was 6.9 at [facility], was 5.7 at prior pcp; july 2021 was 5.9, Sep 2022 5.1, today 5.7 cont trulicitym etformin 1 qd- stopping due to hypoglycem ic events dwp diet changes, reduce heavy carb meals, increase protein Hypoglycem ic event due to diabetes 011994925 E11.649 dwp stopping metformin Obesity 922778856 E66.9 advised low fat, low cholestero l diet, regular exercise and weight reduction. [id number] MD Komal Escamilla (Adult Med) [address] [place] [address] 04/23/2023 09:01:54 04/25/2023 08:27:59 Type 2 diabetes mellitus 84043795 E11.9 a1c was last 5.7 cont trulicitym etformin 1 qd- stopping due to hypoglycem ic events dwp diet changes, reduce heavy carb meals, increase proteinapt with endocrine next month Obesity 923377808 E66.9 advised low fat, low cholestero l diet, regular exercise and weight reduction. Mixed hyperlipidemia 267 822379 E78.2 will not take statins due to myalgia,di et advised Hypertensive disorder 38 908787 I10 controlled , cont losartan and hctz; work on diet and weight loss. Cont low salt. Vitamin D deficiency 347 79662 E55.9 cont replacemen t Mixed anxi ety and depressive disorder 146117418 F41.8 Off all her medication s and doing fine, no panic attacks, no SI or HI Screening for malignant neoplasm of colon 010169093 Z12.11 [id number] MD Komal Escamilla (Adult Med) [address] [place] [address] 10/22/2023 08:46:14 10/27/2023 12:49:07 Type 2 diabetes mellitus 49077381 E11.9 a1c was last 5.4 in August with endocrinem etformin 1 qd- stopping due to hypoglycem ic eventsdwp diet changes, reduce heavy carb meals, increase proteinsee ing endocrine Obesity 776807701 E66.9 advised low fat, low cholestero l diet, regular exercise and weight reduction. Mixed hyperlipidemia 267 151471 E78.2 will not take statins due to myalgia,di et advised Hypertensive disorder 38 001939 I10 controlled , cont losartan and hctz; work on diet and weight loss. Cont low salt. Vitamin D deficiency 347 20854 E55.9 cont replacemen t Mixed anxi ety and depressive disorder 835237994 F41.8 Off all her medication s and doing fine, no panic attacks, no SI or HI [id number] MD Komal Escamilla (Adult Med) [address] [place] [address] 04/25/2024 16:33:39 04/26/2024 15:53:18 Mixed anxiety and depressive disorder 645296904 F41.8 Off all her medication s and doing fine, no panic attacks, no SI or HI Mixed hyperlipidemia 267 626402 E78.2 will not take statins due to myalgia,di et advised Hypertensive disorder 38 251806 I10 controlled , cont losartan and hctz; work on diet and weight loss. Cont low salt. Type 2 carmen betes mellitus 52838919 E11.9 a1c was last 5.4 in August with endocrine- today 5.2metform in 1 qd- stopping due to hypoglycem ic eventsdwp diet changes, reduce heavy carb meals, increase proteinsee ing endocrine Vitamin D deficiency 347 27961 E55.9 cont replacemen t Obesity 963131861 E66.9 advised low fat, low cholestero l diet, regular exercise and weight reduction. [id number] Arabella dunn, MD [facility] (Adult Med) [address] [place] [address] 05/26/2024 15:57:47 05/31/2024 16:10:47 Acute bilateral otitis media 436013748 H66.93 Harjinder TM erythema and edema/bulg ing Health Concerns Section Related Observation LastModified by Organization Detai ls LastModified Time None Recorded Concern Status LastModified by Organization Details LastModified Time None Recorded Advance Directives Directive N: Payers Insurance Date Sequence Insurance Name Policy Number Policy Ramirez Covered Member ID Ramirez Member ID Guarantor Name 07/07/2024 2 MEDICAID-[place]: [facility] DEPART[facility] OF PUBLIC AID Beth Krishnan [id number] Beth Krishnan 12/23/2021 2 *SELF PAY* Brunilda Krishnan 10/22/2021 SLIDING FEE SCHEDULE - DISCOUNT Beth Kirshnan 10/22/2023 1 [facility] PRIOR TO 08/23/2020 (MEDICAID REPLACEMENT - HMO) Beth Krishnan [id number] Beth Krishnan 05/26/2024 1 [facility] [id number] Beth Krishnan [id number] Beth Krishnan 10/22/2023 1 MEDICAID-[place]: [facility] DEPARTMENT OF PUBLIC AID Beth Krishnan [id number] Beth Krishnan 10/22/2023 1 [facility] PRIOR TO 08/23/2020 (MEDICAID REPLACEMENT - HMO) Beth Krishnan [id number] Beth Krishnan Notes Date Note Type Note Provider Name and Address Organization Details Recorded Time 01/23/20 23 text/htm l Blood sugar has been running low. Blood sugar has been dropping to 63. Soda had brought it back up to 123. States her sugars having dropping for a week. sugar mainly drops in the morning. Pt states it drops when she eats breakfast- biscuits and hash browns usually pt also asking for stand up desk note for work Radha Bella APN, FNP-C Attn: Accounting[address] [place], [address], [facility] 01/22/2023 14:04:31 04/23/19 24 text/htm l Anxiety/DepressionReported bypatient.Severity:denies suicidal ideations; able to maintain relationships; does not interfere with activities of daily living Context:no major life stressors; Just warren Associated Symptoms:denies homicidal ideations; no visual/auditory hallucinations; no delusions; no shortness of breath; mood good; no anxiety; no crying spells; no panic; no isolation; sleeping well; appetite good; energy good; no apathy; maintaining functionalityHypertension F/UReported bypatient.Associated Symptoms:no dizziness; no lightheadedness; no chest pain; no shortness of breath; no palpitations; no edema; no calf pain with exertion Lifestyle:regular exercise; limiting/avoiding salt Medications:taking medications as directed; no side effects from medication Radha Bella APN, FNP-C Attn: Accounting[address] [facility], [place], [address], [facility] 04/23/2023 09:46:34 10/22/19 24 text/htm l Anxiety/DepressionReported bypatient.Severity:denies suicidal ideations; able to maintain relationships; does not interfere with activities of daily living Context:no major life stressors; Just warren Associated Symptoms:denies homicidal ideations; no visual/auditory hallucinations; no delusions; no shortness of breath; mood good; no anxiety; no crying spells; no panic; no isolation; sleeping well; appetite good; energy good; no apathy; maintaining functionalityHypertension F/UReported bypatient.Associated Symptoms:no dizziness; no lightheadedness; no chest pain; no shortness of breath; no palpitations; no edema; no calf pain with exertion Lifestyle:regular exercise; limiting/avoiding salt Medications:taking medications as directed; no side effects from medication Radha Bella APN, FNP-C Attn: Accounting[address] [place], [address], [facility] 10/22/2023 17:34:52 04/26/19 25 text/htm l Anxiety/DepressionReported bypatient.Severity:denies suicidal ideations; able to maintain relationships; does not interfere with activities of daily living Context:no major life stressors; Just warren Associated Symptoms:denies homicidal ideations; no visual/auditory hallucinations; no delusions; no shortness of breath; mood good; no anxiety; no crying spells; no panic; no isolation; sleeping well; appetite good; energy good; no apathy; maintaining functionalityHypertension F/UReported bypatient.Associated Symptoms:no dizziness; no lightheadedness; no chest pain; no shortness of breath; no palpitations; no edema; no calf pain with exertion Lifestyle:regular exercise; limiting/avoiding salt Medications:taking medications as directed; no side effects from medication Radha Bella APN, FNP-C Attn: Accounting[address] [place], [address], [facility] 04/25/2024 18:16:50 05/27/19 25 text/htm l pt c/o dizziness, states she doesn't get the ear pain that comes with an ear infection. normally feels dizzy. sx started 3 days ago Radha Bella APN, FNP-C Attn: Accounting[address] [place], [address], [facility] 05/26/2024 16:27:36 OBGyn Episode No OBEpisode recorded.
--- OUTSIDE RECORDS SUMMARY | 2024-08-30 08:35 | XMS_ITS | Referral Summary ---
Author Organization [facility] Medical Office Building [address] Address [address] [place] [address] Care Team Providers Care Director Media Name Role Phone Radha Ashley NP Primary Care Provider [phone] Encounters Date Type Department Care Team Description 07/19/2024 Results Follow-Up [facility] Care at [address] [phone] Ruby Chahal NP Screening Mammogram Bilateral W Evangelista 07/16/2024 10:53 AM CDT - 07/16/2024 11:59 PM CDT Hospital Encounter [address] [address] Screening mammogram, encounter for Discharge Disposition: Discharge to home or self care 07/15/[address] [address] Roseline Ramirez 06/23/2024 Results Follow-Up [facility] Barba [address] [place] [address] [place] [phone] Ruby Chahal NP Pap, reflex HPV 06/21/2024 2:00 PM CDT Office Visit [facility] Barba [address] [place] [address] [address] [phone] Ruby Chahal NP Well woman exam (Primary Dx); Secondary amenorrhea from Last 3 Months Allergies No known active allergies Medications losartan [...] concerns. Assessment & Plan (03/09/2023 4:01 PM AGILE QA TESTER): As patient never started OCP, plan to consult for next steps. Discussed importance of preventing uterine hyperplasia. Social History Tobacco Use Types Packs/Day Years [...] on file Legal Sex Female 4:19 PM AGILE QA TESTER Gender Identity Female 05/30/2024 9:16 AM CDT Sexual Orientation Not on file Last Filed [...] 07/16/2024 10:58 AM CDT Plan of Treatment Not on file Procedures Procedure Name Priority Date/Time Associated Diagnosis [...] - 06/23/2024 11:11 AM CDT Performed at: - [facility] [place], [place] [id number] Heel Emery Buffer: Keyonna Nation MD, Phone: [phone] Specimen Comment: [id number] Specimen Comment: No. of containers..01 ThinPrep Vial Ruby Chahal NP LAB CYTOLOGY ORDERABLES Fin al Result Performing Organization Address City/State/[facility] Co de Phone Number [facility] - 01 from Last 3 Months Insurance [facility] CHO[employer] PLUS IDPA [facility] [employer] IDPA [facility] CHOICE PLUS [facility] CHOICE PLUS IDPA Care Teams Director Media Relationship Specialty Start Date End Date Radha Ashley NP [address] [place] [address] [place] [id number] PCP - General Nurse Practitioner 03/14/22
[2024-08-30 10:20] LABS: Alanine Aminotransferase 30 U/L (6-35); Albumin Level 4.0 g/dL (3.5-5.1); Alkaline Phosphatase 53 U/L (38-126); Anion Gap 10 mmol/L (4-12); Aspartate Amino Transferase 32 U/L (14-36); Bilirubin,Total 0.5 mg/dL (0.2-1.3); Blood Urea Nitrogen 13 mg/dL (7-17); Calcium 9.3 mg/dL (8.4-10.2); Carbon Dioxide 22 mmol/L (22-30); Chloride 107 mmol/L (98-107); Cholesterol 175 mg/dL (0-200); Estimated Glomerular Filt Rate 57; Glucose 103 mg/dL (65-110); HDL Direct 48 mg/dL; Potassium 4.2 mmol/L (3.4-5.0); Sodium 139 mmol/L (137-145); Total Protein 6.8 g/dL (6.3-8.2); Triglycerides 129 mg/dL (<150)
[2024-08-30 10:47] LABS: Free T4 Free Thyroxine 1.48 ng/dL (0.78-2.19)
[2024-08-30 10:50] LABS: Thyroid Stimulating Hormone 1.340 uIU/mL (0.465-4.680)
[2024-08-30 11:09] LABS: Vitamin B12 566.0 pg/mL (239-931)
[2024-08-30 11:43] LABS: MALB Creatinine Ratio 9.9 mg/g (0-30)
== END 2024-08-30 08:31 | disposition home or self-care (01) ==
PROVIDERS: PCP Nurse Practitioner Family; Visit Provider Internal Medicine
DX: E28.2 Polycystic ovarian syndrome (principal); E11.9 Type 2 diabetes mellitus without complications; R63.5 Abnormal weight gain; E04.2 Nontoxic multinodular goiter
CPT/HCPCS: 36415; 76536; 80053; 80061; 82043; 82306; 82607; 84439; 84443